=== PATIENT | female | born 1990 | race Hispanic/Latino ===

== ENCOUNTER → 2023-08-27 | Emergency (ER) | payer SELFPAY ==
--- OUTSIDE RECORDS SUMMARY | 2023-08-27 13:36 | XMS REPORT | Continuity of Care Document ---
Author Name Unknown Address [address] 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 Name Role Phone Christophe Waterman Primary Care Physician [phone] Sudeep Pa Attending Clinician Unavaila bigg Goodman Attending Clinician Unavailable ERNA MELENDEZ Attending Clinician Unavailable Nicholas Paul Attending Clinician Unavailab Carolina Hargrove MA Attending Clinician Unavailabl MARSHA Patterson Attending Clinician Unavail able Yoni Morrow Attending Clinician Unavailblessing e Doctor Unassigned, [place] Attending Clinician U navailable CHRISTOPHE SONG Attending Clinician Unavailab [facility] Attending Clinician Unavailable MADHU SHEPARD Attending Clinician Unavailable Siomara Ocampo Attending Clinician UnavailMadhu Echols MD Attending Clinician [phone] Christophe Waterman Attending Clinician [phone] Francesca Saunders Attending Clinician 1, [facility] Room Attending Clinician UnavailPamela Chen MD Attending Clinician [phone] PAMELA SIBLEY Attending Clinician Unavailable Marsha Mack Attending Clinician + Faculty, [facility] Attending Clinician Easton Hancock MD Attending Clinician [phone] EASTON MANZO Attending Clinician Unavailabl e [facility], [facility] Attending Clinician Unavailable ALEXUS LOZA Attending Clinician Unavailable ALEXUS LOZA Attending Clinician Unavailable Risk, Zva-Bpxht-Oq/High Attending Clinician Unav ailTISH Cordova Attending Clinician Unavailable Trimester, [facility] Attending Clinician Unavailable Tish Jimenez MD Attending Clinician [phone] YONI POP Attending Clinician Unavailable CAITLIN HUTCHINS Attending Clinician Unavailable Caitlin Hutchins MD Attending Clinician [phone], [facility] Attending Clinician Unavailable Jeni Aguilar Attending Clinician [phone] HARSHIL ANAYA Attending Clinician Unavailable Al_M Admitting Clinician Unavailable Sudeep Pa Admitting Clinician Unavaila ble Payers Payer Name Policy Type Policy Number Effective Date Expirati on Date Source [employer] [place] [facility] [id number] 2019 00:00:00 [facility] (MEDICAID HMO) [id number] 2021 00:00:00 [place] [id number] 2021 00:00:00 2021 00:00:00 MEDICAID PENDING PENDING 2021 00:00:00 Problems Condition Name Condition Details Condition Category Status Onset Date Resolution Date Last Treatment Date Treating Clinician Comments Source Pre-eclamp mckenzie Pre-eclamp mckenzie Problem Active 3-07 00:00: 00 [facility] Anemia of Anemia of Problem Active 2-08 00:00: 00 [facility] Uterine leiomyoma Uterine Leiomyoma Problem Active 2021-07 0- 00:00: 00 [facility] Placenta previa without hemorrhage Placenta Previa without Hemorrhage Problem Active 2021-07 0-25 00:00: 00 [facility] Uterine scar from previous surgery in , childbirth and the puerperium with problem Uterine Scar from Previous Surgery in , Childbirth and the Puerperium with Problem Problem Active 2021-07 025 00:00: 00 [facility] History of gestationa l diabetes mellitus History of Gestationa l Diabetes Mellitus Problem Active 2021-07 0-25 00:00: 00 [facility] High risk due to history of labor High Risk Due to History of Labor Problem Active 2021-07 0-25 00:00: 00 [facility] Bleeding in early Bleeding in early Disease Active 6-07 00:00: 00 [facility] Supervisio n of high risk in first trimester Supervisio n of high risk in first trimester Disease Active 17 00:00: 00 [facility] Two previous spontaneou s abortions (SAB) affecting care of mother, antepartum , first trimester Two previous spontaneou s abortions (SAB) affecting care of mother, antepartum , first trimester Disease Active 17 00:00: 00 [facility] H/O section H/O section Disease Active 517 00:00: 00 [facility] Multiparit y Multiparit y Disease Active 17 00:00: 00 [facility] Personal history of pre-term labor Personal history of pre-term labor Disease Active 17 00:00: 00 [facility] Obesity in Obesity in Disease Active 17 00:00: 00 [facility] History of anxiety History of anxiety Disease Active 517 00:00: 00 [facility] Depo-Prove ra contracept mireya status Depo-Prove ra contracept mireya status Disease Active 2018-07 2- 00:00: 00 [facility] BMI 33.0-33.9, adult BMI 33.0-33.9, adult Disease Active 5-09 00:00: 00 [facility] Family history of Congenital heart disease Family History of Congenital Heart Disease Problem Active [facility] Allergies, Adverse Reactions, Alerts Allergy Name Allergy Type Status Severity Reaction(s) Onset Date Inactive Date Treating Clinician Comments Source LATEX DRUG INGREDI Active Rash 11-12 00:00: 00 [facility] Latex Propensi ty to adverse reaction s Active Rash 11-12 00:00: 00 [facility] Latex Allergy to substanc e Active Rash 11-12 00:00: 00 [facility] LATEX, NATURAL RUBBER Allergy to substanc e Active Itching [facility] Social History Social Habit Start Date Stop Date Quantity Comments Source ASSERTION 2022-01-27 00:00:00 [facility] Alcohol Frequency [facility] History SDOH Alcohol Std Drinks [facility] History SDOH Alcohol Binge [facility] Exposure to SARS-CoV-2 (event) 2022-03-24 00:00:00 2022-04-03 15:19:00 Not sure [facility] History of Social function 2021-11-20 00:00:00 2021-11-20 00:00:00 [facility] Alcohol intake 2021-02-20 00:00:00 2021-02-20 00:00:00 Ex-drinker (finding) [facility] Tobacco use and exposure 2018-11-12 00:00:00 2018-11-12 00:00:00 Smokeless tobacco non-user [facility] Alcohol Comment 2018-11-12 00:00:00 2018-11-12 00:00:00 rare [facility] Sex Assigned At 1990 00:00:00 1990 00:00:00 [facility] Smoking Status Start Date Stop Date Source Never Smoker [facility] Medications Ordered Medication Name Filled Medication Name Start Date Stop Date Current Medication? Ordering Clinician Indication Dosage Frequency Signature (SIG) Comments Components Source proMETHazin e 25 mg tablet 913 00:00: 00 Yes [id number] 25mg Take 1 tablet by mouth every 6 (six) hours as needed for Nausea and Vomiting (N/V). [facility] proMETHazin e 25 mg tablet 2-0 9-13 00:00: 00 Yes [id number] 25mg Take 1 tablet by mouth every 6 (six) hours as needed for Nausea and Vomiting (N/V). [facility] proMETHazin e 25 mg tablet 2-0 9-13 00:00: 00 Yes [id number] 25mg Take 1 tablet by mouth every 6 (six) hours as needed for Nausea and Vomiting (N/V). [facility] proMETHazin e 25 mg tablet 2-0 9-13 00:00: 00 Yes [id number] 25mg Take 1 tablet by mouth every 6 (six) hours as needed for Nausea and Vomiting (N/V). [facility] proMETHazin e 25 mg tablet 2021-0 9-13 00:00: 00 Yes [id number] 25mg Take 1 tablet by mouth every 6 (six) hours as needed for Nausea and Vomiting (N/V). [facility] proMETHazin e 25 mg tablet 2-0 9-13 00:00: 00 Yes [id number] 25mg Take 1 tablet by mouth every 6 (six) hours as needed for Nausea and Vomiting (N/V). [facility] proMETHazin e 25 mg tablet 2-0 9-13 00:00: 00 Yes [id number] 25mg Take 1 tablet by mouth every 6 (six) hours as needed for Nausea and Vomiting (N/V). [facility] proMETHazin e 25 mg tablet 2-0 9-13 00:00: 00 Yes [id number] 25mg Take 1 tablet by mouth every 6 (six) hours as needed for Nausea and Vomiting (N/V). [facility] proMETHazin e 25 mg tablet 2-0 9-13 00:00: 00 Yes [id number] 25mg Take 1 tablet by mouth every 6 (six) hours as needed for Nausea and Vomiting (N/V). [facility] proMETHazin e 25 mg tablet 2-0 9-13 00:00: 00 Yes [id number] 25mg Take 1 tablet by mouth every 6 (six) hours as needed for Nausea and Vomiting (N/V). [facility] proMETHazin e 25 mg tablet 03-19 00:00: 00 Yes [id number] 25mg Take 1 tablet by mouth every 6 (six) hours as needed for Nausea and Vomiting (N/V). [facility] proMETHazin e 25 mg tablet 03-19 00:00: 00 Yes [id number] 25mg Take 1 tablet by mouth every 6 (six) hours as needed for Nausea and Vomiting (N/V). [facility] proMETHazin e 25 mg tablet 03-19 00:00: 00 Yes [id number] 25mg Take 1 tablet by mouth every 6 (six) hours as needed for Nausea and Vomiting (N/V). [facility] proMETHazin e 25 mg tablet 03-19 00:00: 00 Yes [id number] 25mg Take 1 tablet by mouth every 6 (six) hours as needed for Nausea and Vomiting (N/V). [facility] hydroxyprog esterone,PF , (ANDREW, PF,) 275 mg/1.1 mL injection 03-13 00:00: 00 Yes [id number] 275mg inject 1.1 mL under the skin weekly. [facility] hydroxyprog esterone,PF , (ANDREW, PF,) 275 mg/1.1 mL injection 03-13 00:00: 00 Yes [id number] 275mg inject 1.1 mL under the skin weekly. [facility] hydroxyprog esterone,PF , (ANDREW, PF,) 275 mg/1.1 mL injection 03-13 00:00: 00 Yes [id number] 275mg inject 1.1 mL under the skin weekly. [facility] hydroxyprog esterone,PF , (ANDREW, PF,) 275 mg/1.1 mL injection 03-13 00:00: 00 Yes [id number] 275mg inject 1.1 mL under the skin weekly. [facility] hydroxyprog esterone,PF , (ANDREW, PF,) 275 mg/1.1 mL injection 03-13 00:00: 00 Yes [id number] 275mg inject 1.1 mL under the skin weekly. [facility] hydroxyprog esterone,PF , (ANDREW, PF,) 275 mg/1.1 mL injection 03-13 00:00: 00 Yes [id number] 275mg inject 1.1 mL under the skin weekly. [facility] hydroxyprog esterone,PF , (ANDREW, PF,) 275 mg/1.1 mL injection 03-13 00:00: 00 Yes [id number] 275mg inject 1.1 mL under the skin weekly. [facility] hydroxyprog esterone,PF , (ANDREW, PF,) 275 mg/1.1 mL injection 03-13 00:00: 00 Yes [id number] 275mg inject 1.1 mL under the skin weekly. [facility] hydroxyprog esterone,PF , (ANDREW, PF,) 275 mg/1.1 mL injection 03-13 00:00: 00 Yes [id number] 275mg inject 1.1 mL under the skin weekly. [facility] hydroxyprog esterone,PF , (ANDREW, PF,) 275 mg/1.1 mL injection 03-13 00:00: 00 Yes [id number] 275mg inject 1.1 mL under the skin weekly. [facility] hydroxyprog esterone,PF , (ANDREW, PF,) 275 mg/1.1 mL injection 03-13 00:00: 00 Yes [id number] 275mg inject 1.1 mL under the skin weekly. [facility] hydroxyprog esterone,PF , (ANDREW, PF,) 275 mg/1.1 mL injection 03-13 00:00: 00 Yes [id number] 275mg inject 1.1 mL under the skin weekly. [facility] hydroxyprog esterone,PF , (ANDREW, PF,) 275 mg/1.1 mL injection 03-13 00:00: 00 Yes [id number] 275mg inject 1.1 mL under the skin weekly. [facility] hydroxyprog esterone,PF , (ANDREW, PF,) 275 mg/1.1 mL injection 03-13 00:00: 00 Yes [id number] 275mg inject 1.1 mL under the skin weekly. [facility] hydroxyprog esterone,PF , (ANDREW, PF,) 275 mg/1.1 mL injection 03-13 00:00: 00 Yes [id number] 275mg inject 1.1 mL under the skin weekly. [facility] proMETHazin e 25 mg tablet 11-22 00:00: 00 Yes [id number] 25mg Take 1 tablet by mouth every 4 (four) hours as needed for Nausea and Vomiting (N/V). [facility] proMETHazin e 25 mg tablet 11-22 00:00: 00 Yes [id number] 25mg Take 1 tablet by mouth every 4 (four) hours as needed for Nausea and Vomiting (N/V). [facility] proMETHazin e 25 mg tablet 11-22 00:00: 00 Yes [id number] 25mg Take 1 tablet by mouth every 4 (four) hours as needed for Nausea and Vomiting (N/V). [facility] proMETHazin e 25 mg tablet 11-22 00:00: 00 Yes [id number] 25mg Take 1 tablet by mouth every 4 (four) hours as needed for Nausea and Vomiting (N/V). [facility] proMETHazin e 25 mg tablet 11-22 00:00: 00 Yes [id number] 25mg Take 1 tablet by mouth every 4 (four) hours as needed for Nausea and Vomiting (N/V). [facility] proMETHazin e 25 mg tablet 0 11-22 00:00: 00 Yes [id number] 25mg Take 1 tablet by mouth every 4 (four) hours as needed for Nausea and Vomiting (N/V). [facility] proMETHazin e 25 mg tablet 0 11-22 00:00: 00 Yes [id number] 25mg Take 1 tablet by mouth every 4 (four) hours as needed for Nausea and Vomiting (N/V). [facility] proMETHazin e 25 mg tablet 0 11-22 00:00: 00 Yes [id number] 25mg Take 1 tablet by mouth every 4 (four) hours as needed for Nausea and Vomiting (N/V). [facility] proMETHazin e 25 mg tablet 2021-0 11-22 00:00: 00 Yes [id number] 25mg Take 1 tablet by mouth every 4 (four) hours as needed for Nausea and Vomiting (N/V). [facility] proMETHazin e 25 mg tablet 2021-0 11-22 00:00: 00 Yes [id number] 25mg Take 1 tablet by mouth every 4 (four) hours as needed for Nausea and Vomiting (N/V). [facility] proMETHazin e 25 mg tablet 2021-0 11-22 00:00: 00 Yes [id number] 25mg Take 1 tablet by mouth every 4 (four) hours as needed for Nausea and Vomiting (N/V). [facility] proMETHazin e 25 mg tablet 2021-0 11-22 00:00: 00 Yes [id number] 25mg Take 1 tablet by mouth every 4 (four) hours as needed for Nausea and Vomiting (N/V). [facility] proMETHazin e 25 mg tablet 2021-0 11-22 00:00: 00 Yes [id number] 25mg Take 1 tablet by mouth every 4 (four) hours as needed for Nausea and Vomiting (N/V). [facility] proMETHazin e 25 mg tablet 2021-0 11-22 00:00: 00 Yes [id number] 25mg Take 1 tablet by mouth every 4 (four) hours as needed for Nausea and Vomiting (N/V). [facility] proMETHazin e 25 mg tablet 2021-0 -19 00:00: 00 Yes [id number] 25mg Take 1 tablet by mouth every 4 (four) hours as needed for Nausea and Vomiting (N/V). [facility] proMETHazin e 25 mg tablet 2-0 5-19 00:00: 00 Yes [id number] 25mg Take 1 tablet by mouth every 4 (four) hours as needed for Nausea and Vomiting (N/V). [facility] proMETHazin e 25 mg tablet 2-0 5-19 00:00: 00 Yes [id number] 25mg Take 1 tablet by mouth every 4 (four) hours as needed for Nausea and Vomiting (N/V). [facility] proMETHazin e 25 mg tablet 11-22 00:00: 00 Yes [id number] 25mg Take 1 tablet by mouth every 4 (four) hours as needed for Nausea and Vomiting (N/V). [facility] vit 33-iron-fol ic-dha (SELECT-OB + DHA) 29 mg iron-1 mg -250 mg combo pack 0 11-20 00:00: 00 Yes [id number] 1{packe t} Take 1 Packet by mouth daily. [facility] vit 33-iron-fol ic-dha (SELECT-OB + DHA) 29 mg iron-1 mg -250 mg combo pack 2021-0 11-20 00:00: 00 Yes [id number] 1{packe t} Take 1 Packet by mouth daily. [facility] vit 33-iron-fol ic-dha (SELECT-OB + DHA) 29 mg iron-1 mg -250 mg combo pack 2021-0 11-20 00:00: 00 Yes [id number] 1{packe t} Take 1 Packet by mouth daily. [facility] vit 33-iron-fol ic-dha (SELECT-OB + DHA) 29 mg iron-1 mg -250 mg combo pack 2021-0 11-20 00:00: 00 Yes [id number] 1{packe t} Take 1 Packet by mouth daily. [facility] vit 33-iron-fol ic-dha (SELECT-OB + DHA) 29 mg iron-1 mg -250 mg combo pack 2021-0 11-20 00:00: 00 Yes [id number] 1{packe t} Take 1 Packet by mouth daily. [facility] vit 33-iron-fol ic-dha (SELECT-OB + DHA) 29 mg iron-1 mg -250 mg combo pack 2021-0 17 00:00: 00 Yes [id number] 1{packe t} Take 1 Packet by mouth daily. [facility] vit 33-iron-fol ic-dha (SELECT-OB + DHA) 29 mg iron-1 mg -250 mg combo pack 2021-0 17 00:00: 00 Yes [id number] 1{packe t} Take 1 Packet by mouth daily. [facility] vit 33-iron-fol ic-dha (SELECT-OB + DHA) 29 mg iron-1 mg -250 mg combo pack 2021-0 17 00:00: 00 Yes [id number] 1{packe t} Take 1 Packet by mouth daily. [facility] vit 33-iron-fol ic-dha (SELECT-OB + DHA) 29 mg iron-1 mg -250 mg combo pack 2021-0 17 00:00: 00 Yes [id number] 1{packe t} Take 1 Packet by mouth daily. [facility] vit 33-iron-fol ic-dha (SELECT-OB + DHA) 29 mg iron-1 mg -250 mg combo pack 2021-0 17 00:00: 00 Yes [id number] 1{packe t} Take 1 Packet by mouth daily. [facility] vit 33-iron-fol ic-dha (SELECT-OB + DHA) 29 mg iron-1 mg -250 mg combo pack 2021-0 17 00:00: 00 Yes [id number] 1{packe t} Take 1 Packet by mouth daily. [facility] vit 33-iron-fol ic-dha (SELECT-OB + DHA) 29 mg iron-1 mg -250 mg combo pack 2021-0 17 00:00: 00 Yes [id number] 1{packe t} Take 1 Packet by mouth daily. [facility] vit 33-iron-fol ic-dha (SELECT-OB + DHA) 29 mg iron-1 mg -250 mg combo pack 2021-0 17 00:00: 00 Yes [id number] 1{packe t} Take 1 Packet by mouth daily. [facility] vit 33-iron-fol ic-dha (SELECT-OB + DHA) 29 mg iron-1 mg -250 mg combo pack 2021-0 -17 00:00: 00 Yes [id number] 1{packe t} Take 1 Packet by mouth daily. [facility] vit 33-iron-fol ic-dha (SELECT-OB + DHA) 29 mg iron-1 mg -250 mg combo pack 11-20 00:00: 00 Yes [id number] 1{packe t} Take 1 Packet by mouth daily. [facility] vit 33-iron-fol ic-dha (SELECT-OB + DHA) 29 mg iron-1 mg -250 mg combo pack 11-20 00:00: 00 Yes [id number] 1{packe t} Take 1 Packet by mouth daily. [facility] vit 33-iron-fol ic-dha (SELECT-OB + DHA) 29 mg iron-1 mg -250 mg combo pack 11-20 00:00: 00 Yes [id number] 1{packe t} Take 1 Packet by mouth daily. [facility] vit 33-iron-fol ic-dha (SELECT-OB + DHA) 29 mg iron-1 mg -250 mg combo pack 11-20 00:00: 00 Yes [id number] 1{packe t} Take 1 Packet by mouth daily. [facility] vit w/iron fumarate and FA ( VITAMIN WITH MINERALS) tablet 10-26 00:00: 00 Yes [id number] 1{tbl} Take 1 tablet by mouth daily. [facility] vit w/iron fumarate and FA ( VITAMIN WITH MINERALS) tablet 10-26 00:00: 00 Yes [id number] 1{tbl} Take 1 tablet by mouth daily. [facility] vit w/iron fumarate and FA ( VITAMIN WITH MINERALS) tablet 2021-0 10-26 00:00: 00 Yes [id number] 1{tbl} Take 1 tablet by mouth daily. [facility] vit w/iron fumarate and FA ( VITAMIN WITH MINERALS) tablet 10-26 00:00: 00 Yes [id number] 1{tbl} Take 1 tablet by mouth daily. [facility] vit w/iron fumarate and FA ( VITAMIN WITH MINERALS) tablet 2021-10-26 00:00: 00 Yes [id number] 1{tbl} Take 1 tablet by mouth daily. [facility] vit w/iron fumarate and FA ( VITAMIN WITH MINERALS) tablet 10-26 00:00: 00 Yes [id number] 1{tbl} Take 1 tablet by mouth daily. [facility] vit w/iron fumarate and FA ( VITAMIN WITH MINERALS) tablet 10-26 00:00: 00 Yes [id number] 1{tbl} Take 1 tablet by mouth daily. [facility] vit w/iron fumarate and FA ( VITAMIN WITH MINERALS) tablet 0 10-26 00:00: 00 Yes [id number] 1{tbl} Take 1 tablet by mouth daily. [facility] vit w/iron fumarate and FA ( VITAMIN WITH MINERALS) tablet 10-26 00:00: 00 Yes [id number] 1{tbl} Take 1 tablet by mouth daily. [facility] vit w/iron fumarate and FA ( VITAMIN WITH MINERALS) tablet 10-26 00:00: 00 Yes [id number] 1{tbl} Take 1 tablet by mouth daily. [facility] vit w/iron fumarate and FA ( VITAMIN WITH MINERALS) tablet 10-26 00:00: 00 Yes [id number] 1{tbl} Take 1 tablet by mouth daily. [facility] vit w/iron fumarate and FA ( VITAMIN WITH MINERALS) tablet 10-26 00:00: 00 Yes [id number] 1{tbl} Take 1 tablet by mouth daily. [facility] vit w/iron fumarate and FA ( VITAMIN WITH MINERALS) tablet 0 10-26 00:00: 00 Yes [id number] 1{tbl} Take 1 tablet by mouth daily. [facility] vit w/iron fumarate and FA ( VITAMIN WITH MINERALS) tablet 10-26 00:00: 00 Yes [id number] 1{tbl} Take 1 tablet by mouth daily. [facility] vit w/iron fumarate and FA ( VITAMIN WITH MINERALS) tablet 10-26 00:00: 00 Yes [id number] 1{tbl} Take 1 tablet by mouth daily. [facility] vit w/iron fumarate and FA ( VITAMIN WITH MINERALS) tablet 10-26 00:00: 00 Yes [id number] 1{tbl} Take 1 tablet by mouth daily. [facility] vit w/iron fumarate and FA ( VITAMIN WITH MINERALS) tablet 10-26 00:00: 00 Yes [id number] 1{tbl} Take 1 tablet by mouth daily. [facility] vit w/iron fumarate and FA ( VITAMIN WITH MINERALS) tablet 10-26 00:00: 00 Yes [id number] 1{tbl} Take 1 tablet by mouth daily. [facility] ibuprofen 800 mg tablet 17 00:00: 00 Yes [id number] 800mg Take 1 tablet by mouth every 8 (eight) hours as needed for Pain (scale 4-6). [facility] ibuprofen 800 mg tablet 0 02-20 00:00: 00 Yes [id number] 800mg Take 1 tablet by mouth every 8 (eight) hours as needed for Pain (scale 4-6). [facility] ibuprofen 800 mg tablet 02-20 00:00: 00 Yes [id number] 800mg Take 1 tablet by mouth every 8 (eight) hours as needed for Pain (scale 4-6). [facility] ibuprofen 800 mg tablet 0 17 00:00: 00 Yes [id number] 800mg Take 1 tablet by mouth every 8 (eight) hours as needed for Pain (scale 4-6). [facility] ibuprofen 800 mg tablet 2020-0 817 00:00: 00 Yes [id number] 800mg Take 1 tablet by mouth every 8 (eight) hours as needed for Pain (scale 4-6). [facility] ibuprofen 800 mg tablet 2020-0 817 00:00: 00 Yes [id number] 800mg Take 1 tablet by mouth every 8 (eight) hours as needed for Pain (scale 4-6). [facility] ibuprofen 800 mg tablet 2021-0 8-17 00:00: 00 Yes [id number] 800mg Take 1 tablet by mouth every 8 (eight) hours as needed for Pain (scale 4-6). [facility] 2020-0 8-17 00:00: 00 Yes [id number] 800mg Take 1 tablet by mouth every 8 (eight) hours as needed for Pain (scale 4-6). [facility] mg tablet 2020-0 8-17 00:00: 00 Yes [id number] 800mg Take 1 tablet by mouth every 8 (eight) hours as needed for Pain (scale 4-6). [facility] mg tablet 1-0 8-17 00:00: 00 Yes [id number] 800mg Take 1 tablet by mouth every 8 (eight) hours as needed for Pain (scale 4-6). [facility] mg tablet 2020-0 8-17 00:00: 00 Yes [id number] 800mg Take 1 tablet by mouth every 8 (eight) hours as needed for Pain (scale 4-6). [facility] ibuprofen 800 mg tablet 2020-0 817 00:00: 00 Yes [id number] 800mg Take 1 tablet by mouth every 8 (eight) hours as needed for Pain (scale 4-6). [facility] ibuprofen 800 mg tablet 2020-0 8-17 00:00: 00 Yes [id number] 800mg Take 1 tablet by mouth every 8 (eight) hours as needed for Pain (scale 4-6). [facility] mg tablet 2020-0 8-17 00:00: 00 Yes [id number] 800mg Take 1 tablet by mouth every 8 (eight) hours as needed for Pain (scale 4-6). [facility] ibuprofen 800 mg tablet 1-0 8-17 00:00: 00 Yes [id number] 800mg Take 1 tablet by mouth every 8 (eight) hours as needed for Pain (scale 4-6). [facility] ibuprofen 800 mg tablet 1-0 8-17 00:00: 00 Yes [id number] 800mg Take 1 tablet by mouth every 8 (eight) hours as needed for Pain (scale 4-6). [facility] ibuprofen 800 mg tablet 02-20 00:00: 00 Yes [id number] 800mg Take 1 tablet by mouth every 8 (eight) hours as needed for Pain (scale 4-6). [facility] ibuprofen 800 mg tablet 02-20 00:00: 00 Yes [id number] 800mg Take 1 tablet by mouth every 8 (eight) hours as needed for Pain (scale 4-6). [facility] ibuprofen 800 mg tablet 02-20 00:00: 00 Yes [id number] 800mg Take 1 tablet by mouth every 8 (eight) hours as needed for Pain (scale 4-6). [facility] ferrous gluconate 240 mg (27 mg iron) tablet Take 1 tablet every day by oral route. ferrous gluconate 240 mg (27 mg iron) tablet Take 1 tablet every day by oral route. No 1 Q1D ferrous gluconate 240 mg (27 mg iron) tablet Take 1 tablet every day by oral route. [facility] omeprazole 40 mg capsule,del ayed release Take 1 capsule every day by oral route. omeprazole 40 mg capsule,del ayed release Take 1 capsule every day by oral route. No 1capsul e(s) Q1D omeprazole 40 mg capsule,de layed release Take 1 capsule every day by oral route. [facility] progesteron e micronized 200 mg capsule progesteron e micronized 200 mg capsule No progestero ne micronized 200 mg capsule [facility] Vitafol Ultra 29 mg iron-1 mg-200 mg capsule Take 1 capsule every day by oral route. Vitafol Ultra 29 mg iron-1 mg-200 mg capsule Take 1 capsule every day by oral route. No 1capsul e(s) Q1D Vitafol Ultra 29 mg iron-1 mg-200 mg capsule Take 1 capsule every day by oral route. [facility] ferrous gluconate 324 mg (37.5 mg iron) tablet Take 1 tablet every day by oral route. ferrous gluconate 324 mg (37.5 mg iron) tablet Take 1 tablet every day by oral route. No 1 Q1D ferrous gluconate 324 mg (37.5 mg iron) tablet Take 1 tablet every day by oral route. [facility] omeprazole 40 mg capsule,del ayed release Take 1 capsule every day by oral route. omeprazole 40 mg capsule,del ayed release Take 1 capsule every day by oral route. No 1capsul e(s) Q1D omeprazole 40 mg capsule,de layed release Take 1 capsule every day by oral route. [facility] progesteron e micronized 200 mg capsule Take 1 capsule every day by oral route for 12 days. progesteron e micronized 200 mg capsule Take 1 capsule every day by oral route for 12 days. No 1capsul e(s) Q1D progestero ne micronized 200 mg capsule Take 1 capsule every day by oral route for 12 days. [facility] Vitafol Ultra 29 mg iron-1 mg-200 mg capsule Take 1 capsule every day by oral route. Vitafol Ultra 29 mg iron-1 mg-200 mg capsule Take 1 capsule every day by oral route. No 1capsul e(s) Q1D Vitafol Ultra 29 mg iron-1 mg-200 mg capsule Take 1 capsule every day by oral route. [facility] ferrous gluconate 324 mg (37.5 mg iron) tablet Take 1 tablet every day by oral route. ferrous gluconate 324 mg (37.5 mg iron) tablet Take 1 tablet every day by oral route. No 1 Q1D ferrous gluconate 324 mg (37.5 mg iron) tablet Take 1 tablet every day by oral route. [facility] omeprazole 40 mg capsule,del ayed release Take 1 capsule every day by oral route. omeprazole 40 mg capsule,del ayed release Take 1 capsule every day by oral route. No 1capsul e(s) Q1D omeprazole 40 mg capsule,de layed release Take 1 capsule every day by oral route. [facility] progesteron e micronized 200 mg capsule Take 1 capsule every day by oral route for 12 days. progesteron e micronized 200 mg capsule Take 1 capsule every day by oral route for 12 days. No 1capsul e(s) Q1D progestero ne micronized 200 mg capsule Take 1 capsule every day by oral route for 12 days. [facility] Vitafol Ultra 29 mg iron-1 mg-200 mg capsule Take 1 capsule every day by oral route. Vitafol Ultra 29 mg iron-1 mg-200 mg capsule Take 1 capsule every day by oral route. No 1capsul e(s) Q1D Vitafol Ultra 29 mg iron-1 mg-200 mg capsule Take 1 capsule every day by oral route. [facility] ferrous gluconate 324 mg (37.5 mg iron) tablet Take 1 tablet every day by oral route. ferrous gluconate 324 mg (37.5 mg iron) tablet Take 1 tablet every day by oral route. No 1 Q1D ferrous gluconate 324 mg (37.5 mg iron) tablet Take 1 tablet every day by oral route. [facility] omeprazole 40 mg capsule,del ayed release Take 1 capsule every day by oral route. omeprazole 40 mg capsule,del ayed release Take 1 capsule every day by oral route. No 1capsul e(s) Q1D omeprazole 40 mg capsule,de layed release Take 1 capsule every day by oral route. [facility] progesteron e micronized 200 mg capsule Take 1 capsule every day by oral route for 12 days. progesteron e micronized 200 mg capsule Take 1 capsule every day by oral route for 12 days. No 1capsul e(s) Q1D progestero ne micronized 200 mg capsule Take 1 capsule every day by oral route for 12 days. [facility] Vitafol Ultra 29 mg iron-1 mg-200 mg capsule Take 1 capsule every day by oral route. Vitafol Ultra 29 mg iron-1 mg-200 mg capsule Take 1 capsule every day by oral route. No 1capsul e(s) Q1D Vitafol Ultra 29 mg iron-1 mg-200 mg capsule Take 1 capsule every day by oral route. [facility] Vitafol Ultra 29 mg iron-1 mg-200 mg capsule Take 1 capsule every day by oral route. Vitafol Ultra 29 mg iron-1 mg-200 mg capsule Take 1 capsule every day by oral route. No 1capsul e(s) Q1D Vitafol Ultra 29 mg iron-1 mg-200 mg capsule Take 1 capsule every day by oral route. [facility] ferrous gluconate 324 mg (37.5 mg iron) tablet Take 1 tablet every day by oral route. ferrous gluconate 324 mg (37.5 mg iron) tablet Take 1 tablet every day by oral route. No 1 Q1D ferrous gluconate 324 mg (37.5 mg iron) tablet Take 1 tablet every day by oral route. [facility] fluconazole 150 mg tablet Take 1 tablet every 72 hours by oral route. fluconazole 150 mg tablet Take 1 tablet every 72 hours by oral route. No fluconazol e 150 mg tablet Take 1 tablet every 72 hours by oral route. [facility] metronidazo le 500 mg tablet Take 1 tablet twice a day by oral route for 7 days. metronidazo le 500 mg tablet Take 1 tablet twice a day by oral route for 7 days. No metronidaz ole 500 mg tablet Take 1 tablet twice a day by oral route for 7 days. [facility] omeprazole 40 mg capsule,del ayed release Take 1 capsule every day by oral route. omeprazole 40 mg capsule,del ayed release Take 1 capsule every day by oral route. No 1capsul e(s) Q1D omeprazole 40 mg capsule,de layed release Take 1 capsule every day by oral route. [facility] progesteron e micronized 200 mg capsule Take 1 capsule every day by oral route for 12 days. progesteron e micronized 200 mg capsule Take 1 capsule every day by oral route for 12 days. No 1capsul e(s) Q1D progestero ne micronized 200 mg capsule Take 1 capsule every day by oral route for 12 days. [facility] Vitafol Ultra 29 mg iron-1 mg-200 mg capsule Take 1 capsule every day by oral route. Vitafol Ultra 29 mg iron-1 mg-200 mg capsule Take 1 capsule every day by oral route. No 1capsul e(s) Q1D Vitafol Ultra 29 mg iron-1 mg-200 mg capsule Take 1 capsule every day by oral route. [facility] ferrous gluconate 324 mg (37.5 mg iron) tablet Take 1 tablet every day by oral route. ferrous gluconate 324 mg (37.5 mg iron) tablet Take 1 tablet every day by oral route. No 1 Q1D ferrous gluconate 324 mg (37.5 mg iron) tablet Take 1 tablet every day by oral route. [facility] fluconazole 150 mg tablet Take 1 tablet every 72 hours by oral route. fluconazole 150 mg tablet Take 1 tablet every 72 hours by oral route. No fluconazol e 150 mg tablet Take 1 tablet every 72 hours by oral route. [facility] metronidazo le 500 mg tablet Take 1 tablet twice a day by oral route for 7 days. metronidazo le 500 mg tablet Take 1 tablet twice a day by oral route for 7 days. No metronidaz ole 500 mg tablet Take 1 tablet twice a day by oral route for 7 days. [facility] omeprazole 40 mg capsule,del ayed release Take 1 capsule every day by oral route. omeprazole 40 mg capsule,del ayed release Take 1 capsule every day by oral route. No 1capsul e(s) Q1D omeprazole 40 mg capsule,de layed release Take 1 capsule every day by oral route. [facility] progesteron e micronized 200 mg capsule Take 1 capsule every day by oral route for 12 days. progesteron e micronized 200 mg capsule Take 1 capsule every day by oral route for 12 days. No 1capsul e(s) Q1D progestero ne micronized 200 mg capsule Take 1 capsule every day by oral route for 12 days. [facility] Vitafol Ultra 29 mg iron-1 mg-200 mg capsule Take 1 capsule every day by oral route. Vitafol Ultra 29 mg iron-1 mg-200 mg capsule Take 1 capsule every day by oral route. No 1capsul e(s) Q1D Vitafol Ultra 29 mg iron-1 mg-200 mg capsule Take 1 capsule every day by oral route. [facility] ferrous gluconate 324 mg (37.5 mg iron) tablet Take 1 tablet every day by oral route. ferrous gluconate 324 mg (37.5 mg iron) tablet Take 1 tablet every day by oral route. No 1 Q1D ferrous gluconate 324 mg (37.5 mg iron) tablet Take 1 tablet every day by oral route. [facility] fluconazole 150 mg tablet Take 1 tablet every 72 hours by oral route. fluconazole 150 mg tablet Take 1 tablet every 72 hours by oral route. No fluconazol e 150 mg tablet Take 1 tablet every 72 hours by oral route. [facility] metronidazo le 500 mg tablet Take 1 tablet twice a day by oral route for 7 days. metronidazo le 500 mg tablet Take 1 tablet twice a day by oral route for 7 days. No metronidaz ole 500 mg tablet Take 1 tablet twice a day by oral route for 7 days. [facility] omeprazole 40 mg capsule,del ayed release Take 1 capsule every day by oral route. omeprazole 40 mg capsule,del ayed release Take 1 capsule every day by oral route. No 1capsul e(s) Q1D omeprazole 40 mg capsule,de layed release Take 1 capsule every day by oral route. [facility] progesteron e micronized 200 mg capsule Take 1 capsule every day by oral route for 12 days. progesteron e micronized 200 mg capsule Take 1 capsule every day by oral route for 12 days. No 1capsul e(s) Q1D progestero ne micronized 200 mg capsule Take 1 capsule every day by oral route for 12 days. [facility] Vitafol Ultra 29 mg iron-1 mg-200 mg capsule Take 1 capsule every day by oral route. Vitafol Ultra 29 mg iron-1 mg-200 mg capsule Take 1 capsule every day by oral route. No 1capsul e(s) Q1D Vitafol Ultra 29 mg iron-1 mg-200 mg capsule Take 1 capsule every day by oral route. [facility] ferrous gluconate 324 mg (37.5 mg iron) tablet Take 1 tablet every day by oral route. ferrous gluconate 324 mg (37.5 mg iron) tablet Take 1 tablet every day by oral route. No 1 Q1D ferrous gluconate 324 mg (37.5 mg iron) tablet Take 1 tablet every day by oral route. [facility] omeprazole 40 mg capsule,del ayed release Take 1 capsule every day by oral route. omeprazole 40 mg capsule,del ayed release Take 1 capsule every day by oral route. No 1capsul e(s) Q1D omeprazole 40 mg capsule,de layed release Take 1 capsule every day by oral route. [facility] progesteron e micronized 200 mg capsule Take 1 capsule every day by oral route for 12 days. progesteron e micronized 200 mg capsule Take 1 capsule every day by oral route for 12 days. No 1capsul e(s) Q1D progestero ne micronized 200 mg capsule Take 1 capsule every day by oral route for 12 days. [facility] Vitafol Ultra 29 mg iron-1 mg-200 mg capsule Take 1 capsule every day by oral route. Vitafol Ultra 29 mg iron-1 mg-200 mg capsule Take 1 capsule every day by oral route. No 1capsul e(s) Q1D Vitafol Ultra 29 mg iron-1 mg-200 mg capsule Take 1 capsule every day by oral route. [facility] ferrous gluconate 324 mg (37.5 mg iron) tablet Take 1 tablet every day by oral route. ferrous gluconate 324 mg (37.5 mg iron) tablet Take 1 tablet every day by oral route. No 1 Q1D ferrous gluconate 324 mg (37.5 mg iron) tablet Take 1 tablet every day by oral route. [facility] phentermine 37.5 mg tablet Take 1 tablet every day by oral route for 30 days. phentermine 37.5 mg tablet Take 1 tablet every day by oral route for 30 days. No 1 Q1D phentermin e 37.5 mg tablet Take 1 tablet every day by oral route for 30 days. [facility] Vitafol Ultra 29 mg iron-1 mg-200 mg capsule Take 1 capsule every day by oral route. Vitafol Ultra 29 mg iron-1 mg-200 mg capsule Take 1 capsule every day by oral route. No 1capsul e(s) Q1D Vitafol Ultra 29 mg iron-1 mg-200 mg capsule Take 1 capsule every day by oral route. [facility] ferrous gluconate 240 mg (27 mg iron) tablet Take 1 tablet every day by oral route. ferrous gluconate 240 mg (27 mg iron) tablet Take 1 tablet every day by oral route. No 1 Q1D ferrous gluconate 240 mg (27 mg iron) tablet Take 1 tablet every day by oral route. [facility] omeprazole 40 mg capsule,del ayed release Take 1 capsule every day by oral route. omeprazole 40 mg capsule,del ayed release Take 1 capsule every day by oral route. No 1capsul e(s) Q1D omeprazole 40 mg capsule,de layed release Take 1 capsule every day by oral route. [facility] progesteron e micronized 200 mg capsule progesteron e micronized 200 mg capsule No progestero ne micronized 200 mg capsule [facility] Vitafol Ultra 29 mg iron-1 mg-200 mg capsule Take 1 capsule every day by oral route. Vitafol Ultra 29 mg iron-1 mg-200 mg capsule Take 1 capsule every day by oral route. No 1capsul e(s) Q1D Vitafol Ultra 29 mg iron-1 mg-200 mg capsule Take 1 capsule every day by oral route. [facility] ferrous gluconate 240 mg (27 mg iron) tablet Take 1 tablet every day by oral route. ferrous gluconate 240 mg (27 mg iron) tablet Take 1 tablet every day by oral route. No 1 Q1D ferrous gluconate 240 mg (27 mg iron) tablet Take 1 tablet every day by oral route. [facility] omeprazole 40 mg capsule,del ayed release Take 1 capsule every day by oral route. omeprazole 40 mg capsule,del ayed release Take 1 capsule every day by oral route. No 1capsul e(s) Q1D omeprazole 40 mg capsule,de layed release Take 1 capsule every day by oral route. [facility] progesteron e micronized 200 mg capsule progesteron e micronized 200 mg capsule No progestero ne micronized 200 mg capsule [facility] Vitafol Ultra 29 mg iron-1 mg-200 mg capsule Take 1 capsule every day by oral route. Vitafol Ultra 29 mg iron-1 mg-200 mg capsule Take 1 capsule every day by oral route. No 1capsul e(s) Q1D Vitafol Ultra 29 mg iron-1 mg-200 mg capsule Take 1 capsule every day by oral route. [facility] Immunizations Ordered Immunization Name Filled Immunization Name Date Status Comments Source Influenza Virus Vaccine Quad .5 mL IM 6+ MO 2019-05-04 00:00:00 Completed [facility] HPV9 2019-05-04 00:00:00 Completed [facility] Influenza Virus Vaccine Quad .5 mL IM 6+ MO 2019-05-04 00:00:00 Completed [facility] HPV9 2019-05-04 00:00:00 Completed [facility] Influenza Virus Vaccine Quad .5 mL IM 6+ MO 2019-05-04 00:00:00 Completed [facility] HPV9 2019-05-04 00:00:00 Completed [facility] Influenza Virus Vaccine Quad .5 mL IM 6+ MO 2019-05-04 00:00:00 Completed [facility] HPV9 2019-05-04 00:00:00 Completed [facility] Influenza Virus Vaccine Quad .5 mL IM 6+ MO 2019-05-04 00:00:00 Completed [facility] HPV9 2019-05-04 00:00:00 Completed [facility] Influenza Virus Vaccine Quad .5 mL IM 6+ MO 2019-05-04 00:00:00 Completed [facility] HPV9 2019-05-04 00:00:00 Completed [facility] Influenza Virus Vaccine Quad .5 mL IM 6+ MO 2019-05-04 00:00:00 Completed [facility] HPV9 2019-05-04 00:00:00 Completed [facility] Influenza Virus Vaccine Quad .5 mL IM 6+ MO 2019-05-04 00:00:00 Completed [facility] HPV9 2019-05-04 00:00:00 Completed [facility] Influenza Virus Vaccine Quad .5 mL IM 6+ MO 2019-05-04 00:00:00 Completed [facility] HPV9 2019-05-04 00:00:00 Completed [facility] Influenza Virus Vaccine Quad .5 mL IM 6+ MO 2019-05-04 00:00:00 Completed [facility] HPV9 2019-05-04 00:00:00 Completed [facility] Influenza Virus Vaccine Quad .5 mL IM 6+ MO 2019-05-04 00:00:00 Completed [facility] HPV9 2019-05-04 00:00:00 Completed [facility] Influenza Virus Vaccine Quad .5 mL IM 6+ MO 2019-05-04 00:00:00 Completed [facility] HPV9 2019-05-04 00:00:00 Completed [facility] Influenza Virus Vaccine Quad .5 mL IM 6+ MO 2019-05-04 00:00:00 Completed [facility] HPV9 2019-05-04 00:00:00 Completed [facility] Influenza Virus Vaccine Quad .5 mL IM 6+ MO 2019-05-04 00:00:00 Completed [facility] HPV9 2019-05-04 00:00:00 Completed [facility] Influenza Virus Vaccine Quad .5 mL IM 6+ MO 2019-05-04 00:00:00 Completed [facility] HPV9 2019-05-04 00:00:00 Completed [facility] Influenza Virus Vaccine Quad .5 mL IM 6+ MO 2019-05-04 00:00:00 Completed [facility] HPV9 2019-05-04 00:00:00 Completed [facility] Influenza Virus Vaccine Quad .5 mL IM 6+ MO 2019-05-04 00:00:00 Completed [facility] HPV9 2019-05-04 00:00:00 Completed [facility] Influenza Virus Vaccine Quad .5 mL IM 6+ MO 2019-05-04 00:00:00 Completed [facility] HPV9 2019-05-04 00:00:00 Completed [facility] TDAP (ADACEL) VACCINE 2019-04-18 00:00:00 Completed [facility] TDAP (ADACEL) VACCINE 2019-04-18 00:00:00 Completed [facility] TDAP (ADACEL) VACCINE 2019-04-18 00:00:00 Completed [facility] TDAP (ADACEL) VACCINE 2019-04-18 00:00:00 Completed [facility] TDAP (ADACEL) VACCINE 2019-04-18 00:00:00 Completed [facility] TDAP (ADACEL) VACCINE 2019-04-18 00:00:00 Completed [facility] TDAP (ADACEL) VACCINE 2019-04-18 00:00:00 Completed [facility] TDAP (ADACEL) VACCINE 2019-04-18 00:00:00 Completed [facility] TDAP (ADACEL) VACCINE 2019-04-18 00:00:00 Completed [facility] TDAP (ADACEL) VACCINE 2019-04-18 00:00:00 Completed [facility] TDAP (ADACEL) VACCINE 2019-04-18 00:00:00 Completed [facility] TDAP (ADACEL) VACCINE 2019-04-18 00:00:00 Completed [facility] TDAP (ADACEL) VACCINE 2019-04-18 00:00:00 Completed [facility] TDAP (ADACEL) VACCINE 2019-04-18 00:00:00 Completed [facility] TDAP (ADACEL) VACCINE 2019-04-18 00:00:00 Completed [facility] TDAP (ADACEL) VACCINE 2019-04-18 00:00:00 Completed [facility] TDAP (ADACEL) VACCINE 2019-04-18 00:00:00 Completed [facility] TDAP (ADACEL) VACCINE 2019-04-18 00:00:00 Completed [facility] Influenza Virus Vaccine Quad .5 mL IM 6+ MO 2018-11-12 00:00:00 Completed [facility] Influenza Virus Vaccine Quad .5 mL IM 6+ MO 2018-11-12 00:00:00 Completed [facility] Influenza Virus Vaccine Quad .5 mL IM 6+ MO 2018-11-12 00:00:00 Completed [facility] Influenza Virus Vaccine Quad .5 mL IM 6+ MO 2018-11-12 00:00:00 Completed [facility] Influenza Virus Vaccine Quad .5 mL IM 6+ MO 2018-11-12 00:00:00 Completed [facility] Influenza Virus Vaccine Quad .5 mL IM 6+ MO 2018-11-12 00:00:00 Completed [facility] Influenza Virus Vaccine Quad .5 mL IM 6+ MO 2018-11-12 00:00:00 Completed [facility] Influenza Virus Vaccine Quad .5 mL IM 6+ MO 2018-11-12 00:00:00 Completed [facility] Influenza Virus Vaccine Quad .5 mL IM 6+ MO 2018-11-12 00:00:00 Completed [facility] Influenza Virus Vaccine Quad .5 mL IM 6+ MO 2018-11-12 00:00:00 Completed [facility] Influenza Virus Vaccine Quad .5 mL IM 6+ MO 2018-11-12 00:00:00 Completed [facility] Influenza Virus Vaccine Quad .5 mL IM 6+ MO 2018-11-12 00:00:00 Completed [facility] Influenza Virus Vaccine Quad .5 mL IM 6+ MO 2018-11-12 00:00:00 Completed [facility] Influenza Virus Vaccine Quad .5 mL IM 6+ MO 2018-11-12 00:00:00 Completed [facility] Influenza Virus Vaccine Quad .5 mL IM 6+ MO 2018-11-12 00:00:00 Completed [facility] Influenza Virus Vaccine Quad .5 mL IM 6+ MO 2018-11-12 00:00:00 Completed [facility] Influenza Virus Vaccine Quad .5 mL IM 6+ MO 2018-11-12 00:00:00 Completed [facility] Influenza Virus Vaccine Quad .5 mL IM 6+ MO 2018-11-12 00:00:00 Completed [facility] Influenza Virus Vaccine Quad .5 mL IM 6+ MO (FLUZONE/FLULAVAL/F LUARIX) Unknown Completed [facility] TDAP (ADACEL) VACCINE Unknown Completed [facility] Influenza Virus Vaccine Quad .5 mL IM 6+ MO (FLUZONE/FLULAVAL/F LUARIX) Unknown Completed [facility] HPV9 Unknown Completed [facility] Vital Signs Vital Name Observation Time Observation Value Comments S ource BP Diastolic 2022-10-28 00:00:00 86 mm[Hg] [facility] Height 2022-10-28 00:00:00 60 [in_i] [facility] BMI (Body Mass Index) 2022-10-28 00:00:00 39.5 kg/m2 [facility] BP Systolic 2022-10-28 00:00:00 139 mm[Hg] [facility] Body Weight 2022-10-28 00:00:00 202 [lb_av] [facility] BP Diastolic 2022-09-27 00:00:00 90 mm[Hg] [facility] Height 2022-09-27 00:00:00 60 [in_i] [facility] BMI (Body Mass Index) 2022-09-27 00:00:00 44.1 kg/m2 [facility] BP Systolic 2022-09-27 00:00:00 137 mm[Hg] [facility] Body Weight 2022-09-27 00:00:00 226 [lb_av] [facility] BP Diastolic 2022-09-20 00:00:00 92 mm[Hg] [facility] Height 2022-09-20 00:00:00 60 [in_i] [facility] BMI (Body Mass Index) 2022-09-20 00:00:00 43.7 kg/m2 [facility] BP Systolic 2022-09-20 00:00:00 143 mm[Hg] [facility] Body Weight 2022-09-20 00:00:00 224 [lb_av] [facility] BP Diastolic 2022-09-17 00:00:00 87 mm[Hg] [facility] Height 2022-09-17 00:00:00 60 [in_i] [facility] BMI (Body Mass Index) 2022-09-17 00:00:00 43.7 kg/m2 [facility] BP Systolic 2022-09-17 00:00:00 141 mm[Hg] [facility] Body Weight 2022-09-17 00:00:00 223.7 [lb_av] [facility] BP Diastolic 2022-09-13 00:00:00 89 mm[Hg] [facility] Height 2022-09-13 00:00:00 60 [in_i] [facility] BMI (Body Mass Index) 2022-09-13 00:00:00 43.1 kg/m2 [facility] BP Systolic 2022-09-13 00:00:00 133 mm[Hg] [facility] Body Weight 2022-09-13 00:00:00 220.6 [lb_av] [facility] BP Diastolic 2022-09-10 00:00:00 86 mm[Hg] [facility] Height 2022-09-10 00:00:00 60 [in_i] [facility] BP Systolic 2022-09-10 00:00:00 135 mm[Hg] [facility] Body Weight 2022-09-10 00:00:00 220.9 [lb_av] [facility] BP Diastolic 2022-09-06 00:00:00 86 mm[Hg] [facility] Height 2022-09-06 00:00:00 60 [in_i] [facility] BMI (Body Mass Index) 2022-09-06 00:00:00 43.9 kg/m2 [facility] BP Systolic 2022-09-06 00:00:00 144 mm[Hg] [facility] Body Weight 2022-09-06 00:00:00 225 [lb_av] [facility] BP Diastolic 2022-08-30 00:00:00 97 mm[Hg] [facility] Height 2022-08-30 00:00:00 60 [in_i] [facility] BMI (Body Mass Index) 2022-08-30 00:00:00 43.2 kg/m2 [facility] BP Systolic 2022-08-30 00:00:00 147 mm[Hg] [facility] Body Weight 2022-08-30 00:00:00 221.1 [lb_av] [facility] BP Diastolic 2022-08-14 00:00:00 83 mm[Hg] [facility] Height 2022-08-14 00:00:00 60 [in_i] [facility] BMI (Body Mass Index) 2022-08-14 00:00:00 41.8 kg/m2 [facility] BP Systolic 2022-08-14 00:00:00 135 mm[Hg] [facility] Body Weight 2022-08-14 00:00:00 213.8 [lb_av] [facility] BP Diastolic 2022-07-11 00:00:00 82 mm[Hg] [facility] Height 2022-07-11 00:00:00 60 [in_i] [facility] BMI (Body Mass Index) 2022-07-11 00:00:00 41.9 kg/m2 [facility] BP Systolic 2022-07-11 00:00:00 131 mm[Hg] [facility] Body Weight 2022-07-11 00:00:00 214.3 [lb_av] [facility] BP Diastolic 2022-06-27 00:00:00 79 mm[Hg] [facility] Height 2022-06-27 00:00:00 60 [in_i] [facility] BMI (Body Mass Index) 2022-06-27 00:00:00 40.9 kg/m2 [facility] BP Systolic 2022-06-27 00:00:00 138 mm[Hg] [facility] Body Weight 2022-06-27 00:00:00 209.3 [lb_av] [facility] BP Diastolic 2022-05-14 00:00:00 75 mm[Hg] [facility] Height 2022-05-14 00:00:00 60 [in_i] [facility] BMI (Body Mass Index) 2022-05-14 00:00:00 38.8 kg/m2 [facility] BP Systolic 2022-05-14 00:00:00 114 mm[Hg] [facility] Body Weight 2022-05-14 00:00:00 198.8 [lb_av] [facility] BP Diastolic 2022-04-30 00:00:00 71 mm[Hg] [facility] Height 2022-04-30 00:00:00 60 [in_i] [facility] BMI (Body Mass Index) 2022-04-30 00:00:00 38.5 kg/m2 [facility] BP Systolic 2022-04-30 00:00:00 124 mm[Hg] [facility] Body Weight 2022-04-30 00:00:00 197 [lb_av] [facility] Systolic blood pressure 2022-04-03 20:21:00 135 mm[Hg] [facility] Diastolic blood pressure 2022-04-03 20:21:00 78 mm[Hg] [facility] Heart rate 2022-04-03 20:20:00 87 /min [facility] Body temperature 2022-04-03 20:20:00 36.56 [facility] Respiratory rate 2022-04-03 20:20:00 18 /min [facility] Body weight 2022-04-03 20:20:[address] [facility] BMI 2022-04-03 20:20:00 34.40 kg/m2 [facility] Systolic blood pressure 2022-03-19 14:33:00 138 mm[Hg] [facility] Diastolic blood pressure 2022-03-19 14:33:00 66 mm[Hg] [facility] Heart rate 2022-03-19 14:33:00 87 /min [facility] Body temperature 2022-03-19 14:33:00 36.5 Maked[facility] Respiratory rate 2022-03-19 14:33:00 18 /min [facility] Body height 2022-03-19 14:33:[address] [facility] Body weight 2022-03-19 14:33:[address] [facility] BMI 2022-03-19 14:33:00 34.25 kg/m2 [facility] Systolic blood pressure 2022-02-19 19:17:00 134 mm[Hg] [facility] Diastolic blood pressure 2022-02-19 19:17:00 76 mm[Hg] [facility] Heart rate 2022-02-19 19:17:00 81 /min [facility] Body temperature 2022-02-19 19:17:00 36.39 [facility] Respiratory rate 2022-02-19 19:17:00 18 /min [facility] Body height 2022-02-19 19:17:[address] [facility] Body weight 2022-02-19 19:17:[address] [facility] BMI 2022-02-19 19:17:00 33.85 kg/m2 [facility] Procedures Procedure Date / Time Performed Performing Clinician Source Delivery 2022-10-01 00:00:00 [facility] US(FBP)W/0 NON STRESS TEST 2022-09-27 00:00:00 [facility] US, obstetric, limited 2022-09-20 00:00:00 [facility] US(FBP)W/0 NON STRESS TEST 2022-09-20 00:00:00 [facility] US(FBP)W/0 NON STRESS TEST 2022-09-17 00:00:00 [facility] non-stress test 2022-09-17 00:00:00 [facility] US(FBP)W/0 NON STRESS TEST 2022-09-11 00:00:00 [facility] US(FBP)W/0 NON STRESS TEST 2022-09-10 00:00:00 [facility] US(FBP)W/0 NON STRESS TEST 2022-09-06 00:00:00 [facility] US, obstetric, limited 2022-08-30 00:00:00 [facility] ultrasound 2022-08-30 00:00:00 [facility] ULTRASOUND REPEAT 2022-08-14 00:00:00 [facility] non-stress test 2022-07-11 00:00:00 [facility] US, obstetric, limited 2022-06-27 00:00:00 [facility] US, obstetric, limited 2022-05-14 00:00:00 [facility] EXTERNAL PROVIDER RECORDS 2022-05-04 05:01:00 Doctor Unassigned, [place] [facility] US, obstetric, limited 2022-04-30 00:00:00 [facility] EXTERNAL PROVIDER RECORDS 2022-04-24 05:01:00 Doctor Unassigned, [place] [facility] AUTHORIZATION FOR RELEASE OF PHI 2022-04-10 05:01:00 Doctor Unassigned, [place] [facility] FIRST TRIMESTER ULTRASOUND 2022-04-08 13:38:00 Christophe Song [facility] POCT URINALYSIS 2022-04-03 20:21:00 Christophe Song [facility] POCT URINALYSIS 2022-03-19 14:36:00 Christophe Song [facility] POCT TEST 2022-02-19 19:19:00 Royce Song [facility] POCT URINALYSIS W/O SPECIFIC GRAVITY 2022-02-19 19:18:00 Christophe Song [facility] Plan of Care Planned Activity Planned Date Details Comments Source Diagnostic Test Pending 2022-09-27 00:00:00 urinalysis, dipstick [code = urinalysis, dipstick] [facility] Instructions [facility] Encounters Start Date/Time End Date/Time Encounter Type Admission Type Attending [facility] Facility Care Department Encounter ID Source 2022-09-27 08:30:00 Inpatient Sudeep Khan [facility] [id number] [facility] 2022-01-18 09:17:16 Outpatient [facility] [id number] [facility] 2021-05-07 12:35:40 Emergency [facility] [id number] [facility] 2022-12-05 00:00:00 2022-12-05 00:00:00 Outpatient White_M MMG MMG [id number] [facility] 2022-10-28 00:00:00 2022-10-28 00:00:00 Sudeep Pa MD: [address] [place] [address], [facility] [address], [place] [address] , Ph. [phone] MM[facility] [id number] [facility] 2022-10-13 00:00:00 2022-10-13 00:00:00 Outpatient White_M MMG MMG [id number] [facility] 2022-10-13 00:00:00 2022-10-13 00:00:00 Outpatient White_M MMG MMG [id number] [facility] 2022-10-01 05:04:00 2022-10-02 12:20:00 Inpatient Sudeep Khan [facility] [id number] [facility] 2022-09-27 00:00:00 2022-09-27 00:00:00 Sudeep Pa MD: [address] [place] [address], [facility] [address], [place] [address] , Ph. [phone] [facility] [id number] [facility] 2022-09-26 00:00:00 2022-09-26 00:00:00 Outpatient White_M MMG MMG [id number] [facility] 2022-09-25 00:00:00 2022-09-25 00:00:00 Outpatient White_M MMG MMG [id number] [facility] 2022-09-23 11:49:00 2022-09-23 11:49:00 Outpatient ERNA SMITH [facility] [id number] [facility] 2022-09-23 00:00:00 2022-09-23 00:00:00 Outpatient White_M MMG MMG [id number] [facility] 2022-09-20 00:00:00 2022-09-20 16:50:00 Inpatient ERNA SMITH [facility] [id number] [facility] 2022-09-20 00:00:00 2022-09-20 00:00:00 Erna MelendezREXP-BC: [address] [facility], [facility] [address], [place] [address] , Ph. [phone] [facility] - [facility]YN [id number] [facility] 2022-09-19 00:00:00 2022-09-19 00:00:00 Outpatient White_M MMG MMG [id number] [facility] 2022-09-19 00:00:00 2022-09-19 00:00:00 Outpatient White_M MMG MMG [id number] [facility] 2022-09-18 00:00:00 2022-09-18 00:00:00 Outpatient White_M MMG MMG [id number] [facility] 2022-09-17 00:00:00 2022-09-17 00:00:00 Erna MelendezREXP-BC: [address] [facility], [address], [place] [address] , Ph. [phone] MM[facility] - [facility] [id number] [facility] 2022-09-16 00:00:00 2022-09-16 00:00:00 Outpatient White_M MMG MMG [id number] [facility] 2022-09-16 00:00:00 2022-09-16 00:00:00 Outpatient White_M MMG MMG [id number] [facility] 2022-09-14 16:12:00 2022-09-14 16:12:00 Outpatient EJ SewellPaulNicholas [facility] [id number] [facility] 2022-09-13 12:57:00 2022-09-13 12:57:00 Outpatient Sudeep Khan [facility] [id number] [facility] 2022-09-13 00:00:00 2022-09-13 00:00:00 Sudeep Pa MD: [address] [place] [address], [address], [place] [address] , Ph. [phone] MMG [facility] [id number] [facility] 2022-09-12 00:00:00 2022-09-12 00:00:00 Outpatient White_M MMG MMG [id number] [facility] 2022-09-12 00:00:00 2022-09-12 00:00:00 Outpatient White_M MMG MMG [id number] [facility] 2022-09-11 08:16:00 2022-09-11 08:16:00 Outpatient Sudeep Khan [facility] [id number] [facility] 2022-09-10 16:43:00 2022-09-10 16:43:00 Outpatient Sudeep Khan [facility] [id number] [facility] 2022-09-10 00:00:00 2022-09-10 00:00:00 Sudeep Pa MD: [address] [place] [address], [address], [place] [address] , Ph. [phone] [facility] [id number] [facility] 2022-09-09 10:23:00 2022-09-09 10:23:00 Outpatient ERNA SMITH [facility] [id number] [facility] 2022-09-09 00:00:00 2022-09-09 00:00:00 Outpatient White_M MMG MMG [id number] [facility] 2022-09-09 00:00:00 2022-09-09 00:00:00 Outpatient White_M MMG MMG [id number] [facility] 2022-09-08 00:00:00 2022-09-08 00:00:00 Outpatient White_M MMG MMG [id number] [facility] 2022-09-06 14:37:00 2022-09-06 14:37:00 Outpatient ERNA GE [facility] [id number] [facility] 2022-09-06 00:00:00 2022-09-06 00:00:00 ErnaSATNAM Mckinney: [address] [address] , Ph. [phone] MM[facility] [id number] [facility] 2022-09-02 00:00:00 2022-09-02 00:00:00 Outpatient White_M MMG MMG [id number] [facility] 2022-08-30 00:00:00 2022-08-30 00:00:00 Sudeep Pa MD: [address] [address] , Ph. 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 [phone] MMG [facility] OBGYChristina [id number] [facility] 2022 00:00:00 2022 00:00:00 Outpatient White_M MMG MMG [id number] [facility] 2022 00:00:00 2022 00:00:00 Outpatient White_M MMG MMG [id number] [facility] 2022-07-16 00:00:00 2022-07-16 00:00:00 Case Management Bebeto Carolinajenn BAIN 1.2.840.114 350.1.13.10 4.2.7.2.[id number] [facility] 2022-07-11 00:00:00 2022-07-11 00:00:00 Outpatient White_M MMG MMG [id number] [facility] 2022-07-11 00:00:00 2022-07-11 00:00:00 Yoni Morrow MD: [address] [facility] [address], [place] [address] , Ph. [phone] MMG [facility] [id number] [facility] 2022-06-27 00:00:00 2022-06-27 00:00:00 Outpatient White_M MMG MMG [id number] [facility] 2022-06-27 00:00:00 2022-06-27 00:00:00 Yoni Morrow MD: [address] [facility] [address], [place] [address] , Ph. [phone] [facility] [id number] [facility] 2022-06-03 13:00:00 2022-06-03 13:00:00 Outpatient P [facility] [id number] [facility] 2022-05-17 12:45:00 2022-05-17 12:45:00 Outpatient MARSHA MURILLO [facility] [id number] [facility] 2022-05-14 11:32:00 2022-05-14 11:32:00 Outpatient Yoni Marc [facility] [id number] [facility] 2022-05-14 00:00:00 2022-05-14 00:00:00 Outpatient White_M MMG MMG [id number] [facility] 2022-05-14 00:00:00 2022-05-14 00:00:00 Yoni Morrow MD: [address] [address] , Ph. [phone] [facility] [id number] [facility] 2022-05-06 11:15:00 2022-05-06 11:15:00 Outpatient P [facility] [id number] [facility] 2022-05-04 00:00:00 2022-05-04 00:00:00 Orders Only Doctor Unassigned, [place] [facility] 1.2.840.114 350.1.13.10 4.2.7.2.[id number] [facility] 2022-05-01 13:30:2022-05-01 13:30:00 Outpatient CHRISTOPHE WILLOUGHBY [facility] [id number] [facility] 2022-04-30 00:00:00 2022-04-30 00:00:00 Outpatient Maxine MM[facility] [id number] [facility] 2022-04-30 00:00:00 2022-04-30 00:00:00 REX CarvajalP-BC: [address] [address] , Ph. [phone] [facility] [id number] [facility] 2022-04-29 00:00:00 2022-04-29 00:00:00 Telephone Mario Hernández [facility] ([facility] 1.840.114 350.1.13.10 4.2.7.2.[id number] [facility] 2022-04-24 00:00:00 2022-04-24 00:00:00 Orders Only Doctor Unassigned, [place] [facility] 1..114 350.1.13.10 4.2.7.2.[id number] [facility] 2022-04-19 10:30:00 2022-04-19 11:16:01 Outpatient MADHU PABON [facility] [id number] [facility] 2022-04-19 10:30:00 2022-04-19 11:16:01 Telemedici ne Visit Siomara Ocampo Joseph W [facility] 1.840.114 350.1.13.10 4.2.7.2.[id number] [facility] 2022-04-15 00:00:00 2022-04-15 00:00:00 Telephone Christophe Song [facility] 1.2.840.114 350.1.13.10 4.2.7.2.[id number] [facility] 2022-04-10 00:00:00 2022-04-10 00:00:00 Orders Only Doctor Unassigned, [place] [facility] 1.2.840.114 350.1.13.10 4.2.7.2.[id number] [facility] 2022-04-09 00:00:00 2022-04-09 00:00:00 Outpatient White_M MMG MMG [id number] [facility] 2022-04-09 00:00:00 2022-04-09 00:00:00 Abstract Francesca Mendez [facility] 1.2840.114 350.1.13.10 4.2.7.2.[id number] [facility] 2022-04-08 08:00:00 2022-04-08 14:28:43 Supervisor Agency Appointments Visit 1, [facility] Room Pamela Sibley [facility] 1.2.840.114 350.1.13.10 4.2.7.2.[id number] [facility] 2022-04-08 08:00:00 2022-04-08 08:00:00 Outpatient P PAMELA SIBLEY [facility] [id number] [facility] 2022-04-03 15:15:00 2022-04-03 15:27:46 Outpatient R CHRISTOPHE SONG [facility] [id number] [facility] 2022-04-03 15:15:00 2022-04-03 15:27:46 Routine Visit Christophe Song [facility] MATERNAL & CHILD [facility] 1.2.840.114 350.1.13.10 4.2.7.2.[id number] [facility] 2022-04-02 00:00:00 2022-04-02 00:00:00 Telephone Christophe Song [facility] CHILD [facility] 1.2.840.114 350.1.13.10 4.2.7.2.[id number] [facility] 2022-03-19 09:00:00 2022-03-19 09:51:37 Outpatient R CHRISTOPHE SONG [facility] [id number] [facility] 2022-03-19 09:00:00 2022-03-19 09:51:37 Routine Visit Marsha Chambers Roshunda [facility] & CHILD [facility] 1..840.114 350.1.13.10 4.2.7.2.[id number] [facility] 2022-03-13 00:00:00 2022-03-13 00:00:00 Case Management Christophe Song [facility] 1..840.114 350.1.13.10 4.2.7.2.[id number] [facility] 2022-03-04 15:30:00 2022-03-04 16:00:00 Telemedici ne Visit Faculty, [facility] & CHILD [facility] 1..840.114 350.1.13.10 4.2.7.2.[id number] [facility] 2022-03-04 15:30:00 2022-03-04 15:30:00 Outpatient R [facility] [id number] [facility] 2022-03-04 15:30:00 2022-03-04 15:30:00 Outpatient R EASTON MANZO [facility] [id number] [facility] 2022-02-21 00:00:00 2022-02-21 00:00:00 Case Management Christophe Song [facility] & CHILD [facility] 1..840.114 350.1.13.10 4.2.7.2.[id number] [facility] 2022-02-19 14:45:00 2022-02-19 15:13:46 Outpatient Shae CHRISTOPHE SONG [facility] [id number] [facility] 2022-02-19 14:45:00 2022-02-19 15:13:46 Initial Visit Christophe Song [facility] & CHILD [facility] 1..840.114 350.1.13.10 4.2.7.2.[id number] [facility] 2022-02-19 00:00:00 2022-02-19 00:00:00 Outpatient White_M MMG MMG [id number] [facility] 2022-02-19 00:00:00 2022-02-19 00:00:00 Orders Only Doctor Unassigned, [place] [facility] 1..840.114 350.1.13.10 4.2.7.2.[id number] [facility] 2022-01-14 13:15:00 2022-01-14 13:15:00 Outpatient Shae CHRISTOPHE SONG [facility] [id number] [facility] 2022-01-08 09:45:00 2022-01-08 09:45:00 Outpatient CHRISTOPHE WILLOUGHBY [facility] [id number] [facility] 2021-12-28 15:00:00 2021-12-28 15:00:00 Outpatient CHRISTOPHE WILLOUGHBY [facility] [id number] [facility] 2021-12-27 10:30:00 2021-12-27 11:38:58 Supervisor Agency Appointments Visit 1, [facility] Room Felipe Sibleyio Cassi [facility] 1.2.840.114 350.1.13.10 4.2.7.2.[id number] [facility] 2021-12-27 10:30:00 2021-12-27 10:30:00 Outpatient P PAMELA SIBLEY [facility] [id number] [facility] 2021-12-24 00:00:00 2021-12-24 00:00:00 Telephone Christophe Song [facility] 1.2.840.114 350.1.13.10 4.2.7.2.[id number] [facility] 2021-12-21 15:00:00 2021-12-21 15:25:54 Supervisor Agency Appointments Visit Lab, [facility] Christophe Song [facility] MA[facility] & CHILD [facility] 1.2.840.114 350.1.13.10 4.2.7.2.[id number] [facility] 2021-12-21 15:00:00 2021-12-21 15:00:00 Outpatient R CHRISTOPHE SONG [facility] [id number] [facility] 2021-12-20 08:00:00 2021-12-20 08:00:00 Outpatient R [facility] [id number] [facility] 2021-12-17 13:30:00 2021-12-17 13:30:00 Outpatient R [facility] [id number] [facility] 2021-12-17 13:30:00 2021-12-17 13:30:00 Outpatient R [facility] [id number] [facility] 2021-12-17 13:00:00 2021-12-17 13:00:00 Outpatient R [facility] [id number] [facility] 2021-12-17 13:00:00 2021-12-17 13:00:00 Outpatient R LOZAALEXUS SANGEETA [facility] [id number] [facility] 2021-12-17 00:00:00 2021-12-17 00:00:00 Telephone Christophe Song [facility] MA[facility] CHILD [facility] 1..840.114 350.1.13.10 4.2.7.2.[id number] [facility] 2021-12-13 07:45:00 2021-12-13 07:45:00 Outpatient R CHRISTOPHE SONG [facility] [id number] [facility] 2021-12-12 00:00:00 2021-12-12 00:00:00 Telephone SongChristophe [facility] CHILD [facility] 1.840.114 350.1.13.10 [id number] [facility] 2021-12-11 13:15:00 2021-12-11 13:54:16 Outpatient R SONGCHRISTOPHE [facility] [id number] [facility] 2021-12-11 13:15:00 2021-12-11 13:54:16 Routine Visit Christophe Song [facility] 1.840.114 350.1.13.10 4.2.7.2.[id number] [facility] 2021-12-11 00:00:00 2021-12-11 00:00:00 Telephone Christophe Song [facility] 1.840.114 350.1.13.10 4.2.7.2.[id number] [facility] 2021-12-07 00:00:00 2021-12-07 00:00:00 Case Management Christophe Song [facility] 1.2.840.114 350.1.13.10 4.2.7.2.[id number] [facility] 2021-12-07 00:00:00 2021-12-07 00:00:00 Case Management Christophe Song [facility] 1.2.840.114 350.1.13.10 4.2.7.2.[id number] [facility] 2021-12-05 00:00:00 2021-12-05 00:00:00 Telephone Randy Monson-Rmchp-N p/High [facility] 1.2.840.114 350.1.13.10 4.2.7.2.[id number] [facility] 2021-11-21 00:00:00 2021-11-21 00:00:00 Telephone Christophe Song [facility] [facility] 1.2.840.114 350.1.13.10 4.2.7.2.[id number] [facility] 2021-11-20 10:00:00 2021-11-20 11:37:58 Initial Visit Abiola Songtatiana Shae [facility] 1.2.840.114 350.1.13.10 4.2.7.2.[id number] [facility] 2021-11-20 10:00:00 2021-11-20 11:37:58 Outpatient R JACOB SONGMICHAEL [facility] [id number] [facility] 2021-11-20 09:30:00 2021-11-20 09:30:00 Outpatient CHRISTOPHE WILLOUGHBY [facility] [id number] [facility] 2021-11-20 00:00:00 2021-11-20 00:00:00 Orders Only Doctor Unassigned, [place] [facility] 1.2.840.114 350.1.13.10 4.2.7.2.[id number] [facility] 2021-10-26 10:45:00 2021-10-26 12:39:13 Outpatient TISH LEE [facility] [id number] [facility] 2021-10-26 10:45:00 2021-10-26 12:39:13 Routine Visit Trimester, [facility] Res-1st Tish Jimenez [facility] 1.2.840.114 350.1.13.10 4.2.7.2.[id number] [facility] 2021-10-25 00:00:00 2021-10-25 00:00:00 Telephone Christophe Song [facility]ERNAL & CHILD [facility] 1.2.840.114 350.1.13.10 4.2.7.2.[id number] [facility] 2021-10-24 08:00:00 2021-10-24 08:22:51 Supervisor Agency Appointments Visit Lab[facility] Christophe Song [facility]NAL & CHILD [facility] 1.2.840.114 350.1.13.10 4.2.7.2.[id number] [facility] 2021-10-24 08:00:00 2021-10-24 08:00:00 Outpatient CHRISTOPHE WILLOUGHBY [facility] [id number] [facility] 2021-10-18 00:00:00 2021-10-18 00:00:00 Telephone Christophe Song [facility] CHILD [facility] 1.2.840.114 350.1.13.10 4.2.7.2.[id number] [facility] 2021-10-17 13:15:00 2021-10-17 13:30:00 Office Visit Christophe Song [facility] 1.2.840.114 350.1.13.10 4.2.7.2.[id number] [facility] 2021-10-17 13:15:00 2021-10-17 13:15:00 Outpatient R CHRISTOPHE SONG [facility] [id number] [facility] 2021-10-04 00:00:00 2021-10-04 00:00:00 Telephone Christophe Song [facility] CHILD [facility] 1.2.840.114 350.1.13.10 4.2.7.2.[id number] [facility] 2021-09-21 16:17:00 2021-09-21 17:54:00 Emergency ER YONI POP [facility] [id number] [facility] 2021-09-13 00:00:00 2021-09-13 00:00:00 Outpatient White_M MM[facility] MMG [id number] [facility] 2021-08-01 14:00:00 2021-08-01 14:00:00 Outpatient R CAITLIN HUTCHINS [facility] [id number] [facility] 2021-05-02 10:00:00 2021-05-02 10:00:00 Outpatient R [facility] [id number] [facility] 2021-02-28 08:30:00 2021-02-28 08:30:00 Outpatient R [facility] [id number] [facility] 2021-02-28 00:00:00 2021-02-28 00:00:00 Patient Secure Msg Doctor Unassigned, [place] [facility] 1.2.840.114 350.1.13.10 4.2.7.2.[id number] [facility] 2021-02-28 00:00:00 2021-02-28 00:00:00 Case Management Adum, Caitlin Jane [facility] 1.2.840.114 350.1.13.10 4.2.7.2.[id number] [facility] 2021-02-27 15:53:07 2021-02-27 16:55:14 Routine Visit Adum, Caitlin Jane [facility] 1.2.840.114 350.1.13.10 4.2.7.2.[id number] [facility] 2021-02-27 16:15:00 2021-02-27 16:15:00 Outpatient R TOLU CAITLIN [facility] [id number] [facility] 2021-02-27 15:46:40 2021-02-27 16:01:40 Supervisor Agency Appointments Visit 2, Adc Lab Adum, Caitlin Jane [facility] 1.2.840.114 350.1.13.10 4.2.7.2.[id number] [facility] 2021-02-20 09:30:00 2021-02-20 09:30:00 Outpatient R CAITLIN HUTCHINS [facility] [id number] [facility] 2021-02-13 09:00:00 2021-02-13 09:00:00 Outpatient R CAITLIN HUTCHINS [facility] [id number] [facility] 2021-02-09 10:15:00 2021-02-09 10:15:00 Outpatient R TISH JIMENEZ [facility] [id number] [facility] 2021-02-07 09:04:20 2021-02-07 11:00:17 Initial Visit Risk, Ang-Rmchp-N p/High Christophe Song Karen L [facility] MATERNAL & CHILD [facility] 1.2.840.114 350.1.13.10 4.2.7.2.[id number] [facility] 2021-02-07 08:30:00 2021-02-07 08:30:00 Outpatient CHRISTOPHE WILLOUGHBY [facility] [id number] [facility] 2019-12-10 08:30:00 2019-12-10 08:30:00 Outpatient HARSHIL ASHLEY [facility] [id number] [facility] Results Test Description Test Time Test Comments Results Result Co mments Source [facility] [id number] 07:20:00* Test Item Value Reference Range Interpretation Comme nts .hepatitis B surface antigen (test code = .hepatitis B surface antigen) negative negative [facility]Hemoglobin and Hematocrit panel - [id number] 06:41:00* Test Item Value Reference Range Interpretation Comme nts hemoglobin (test code = hemoglobin) 9.1 g/dL 10.5-15.7 L hematocrit (test code = hematocrit) 30.5 % 34.0-50.0 L [facility] W Auto Differential panel - [id number] 20:56:00 * Test Item Value Reference Range Interpretation Comme nts white blood count (test code = white blood count) 11.6 K/uL 4.0-11.5 H red blood count (test code = red blood count) 3.73 M/uL 3.80-5.20 L hemoglobin (test code = hemoglobin) 7.6 g/dL 10.5-15.7 L hematocrit (test code = hematocrit) 25.6 % 34.0-50.0 L mean corpuscular volume (francisco j t code = mean corpuscular volume) 68.6 fL 86.0-100.0 L mean corpuscular hemoglobin (test code = mean corpuscular hemoglobin) 20.4 pg 26.2-33.4 L mean corpuscular HGB conc (t est code = mean corpuscular HGB conc) 29.7 g/dL 30.0-34.0 L red cell distribution width (test code = red cell distribution width) 16.6 % 12.0-15.5 H platelet count (test code = platelet count) 231 K/uL 165-450 mean platelet volume (test c ode = mean platelet volume) 9.4 fL 9.4-12.6 neutrophils % (test code = neutrophils %) 80.1 % 44.4-80.1 Ig% (test code = Ig%) 0.8 % 0.0-0.4 H lymphocyte% (test code = lymphocyte%) 13.0 % 10.0-50.0 mono % (test code = mono %) 5.6 % 3.6-12.0 eos % (test code = eos %) 0.3 % 0.0-5.4 basophil % (test code = baso raheem %) 0.2 % 0.1-1.2 absolute neutrophil count (t est code = absolute neutrophil count) 9.31 K/uL 1.56-6.13 H Ig# (test code = Ig#) 0.09 K/uL 0.00-0.03 H lymph # (test code = lymph #) 1.51 K/uL 1.18-3.74 mono # (test code = mono #) 0.65 K/uL 0.24-0.86 eos # (test code = eos #) 0.03 K/uL 0.04-0.36 L basophil # (test code = baso raheem #) 0.02 K/uL 0.01-0.08 NRBC% (test code = NRBC%) 0 /100 WBC 0-0.2 NRBC# (test code = NRBC#) 0 K/uL [facility]20[facility] 14:12:00* Test Item Value Reference Range Interpretation Comme nts RPR (test code = RPR) nonreactive nonreactive [facility] W Auto Differential panel - [id number] 05:47:00 * Test Item Value Reference Range Interpretation Comme nts white blood count (test code = white blood count) 8.4 K/uL 4.0-11.5 red blood count (test code = red blood count) 4.40 M/uL 3.80-5.20 hemoglobin (test code = hemoglobin) 8.9 g/dL 10.5-15.7 L hematocrit (test code = hematocrit) 30.2 % 34.0-50.0 L mean corpuscular volume (francisco j t code = mean corpuscular volume) 68.6 fL 86.0-100.0 L mean corpuscular hemoglobin (test code = mean corpuscular hemoglobin) 20.2 pg 26.2-33.4 L mean corpuscular HGB conc (t est code = mean corpuscular HGB conc) 29.5 g/dL 30.0-34.0 L red cell distribution width (test code = red cell distribution width) 16.8 % 12.0-15.5 H platelet count (test code = platelet count) 248 K/uL 165-450 mean platelet volume (test c ode = mean platelet volume) 9.6 fL 9.4-12.6 neutrophils % (test code = neutrophils %) 63.8 % 44.4-80.1 Ig% (test code = Ig%) 0.8 % 0.0-0.4 H lymphocyte% (test code = lymphocyte%) 24.3 % 10.0-50.0 mono % (test code = mono %) 7.8 % 3.6-12.0 eos % (test code = eos %) 2.6 % 0.0-5.4 basophil % (test code = baso raheem %) 0.7 % 0.1-1.2 absolute neutrophil count (t est code = absolute neutrophil count) 5.34 K/uL 1.56-6.13 Ig# (test code = Ig#) 0.07 K/uL 0.00-0.03 H lymph # (test code = lymph #) 2.04 K/uL 1.18-3.74 mono # (test code = mono #) 0.65 K/uL 0.24-0.86 eos # (test code = eos #) 0.22 K/uL 0.04-0.36 basophil # (test code = baso raheem #) 0.06 K/uL 0.01-0.08 NRBC% (test code = NRBC%) 0 /100 WBC 0-0.2 NRBC# (test code = NRBC#) 0 K/uL [facility] Grouptype and [id number] 05:30:00* Test Item Value Reference Range Interpretation Comme nts antibody screen (test code = antibody screen) negative blood type (test code = blood type) AP [facility]transfuse [id number] 05:30:00* Test Item Value Reference Range Interpretation Comme nts blood product code (test cod e = blood product code) PC blood unit number (test code = blood unit number) [id number] blood dispense status (test code = blood dispense status) trs blood status date/time (test code = blood status date/time) [id number] blood coding sys (test code = blood coding sys) isbt blood type (test code = bloo d type) AP expiration instant (test cod e = expiration instant) [id number] [facility] [employer] and [id number] 05:30:00* Test Item Value Reference Range Interpretation Comme nts antibody screen (test code = antibody screen) negative blood type (test code = blood type) AP [facility] [id number] 05:30:00* Test Item Value Reference Range Interpretation Comme nts blood product code (test cod e = blood product code) PC blood unit number (test code = blood unit number) [id number] blood dispense status (test code = blood dispense status) trs blood status date/time (test code = blood status date/time) [id number] blood coding sys (test code = blood coding sys) isbt blood type (test code = bloo d type) AP expiration instant (test cod e = expiration instant) [id number] [facility]inalysis macro (dipstick) panel - [id number] 10:37:06* Test Item Value Reference Range Interpretation Comme nts Leukocytes (test code = Leukocytes) Small Nitrite (test code = Nitrite) negative Urobilinogen (test code = Urobilinogen) .2 Protein (test code = Protein) 30 pH (test code = pH) 7.0 Blood (test code = Blood) Small Specific Union (test code = Specific Union) 1.015 Ketone (test code = Ketone) Negative Bilirubin (test code = Bilirubin) Negative Glucose (test code = Glucose) Negative Appearance (test code = Appearance) Clear Color (test code = Color) Yellow [facility]inalysis macro (dipstick) panel - [id number] 10:37:06* Test Item Value Reference Range Interpretation Comme nts Leukocytes (test code = Leukocytes) Small Nitrite (test code = Nitrite) negative Urobilinogen (test code = Urobilinogen) .2 Protein (test code = Protein) 30 pH (test code = pH) 7.0 Blood (test code = Blood) Small Specific Union (test code = Specific Union) 1.015 Ketone (test code = Ketone) Negative Bilirubin (test code = Bilirubin) Negative Glucose (test code = Glucose) Negative Appearance (test code = Appearance) Clear Color (test code = Color) Yellow [facility] Region[facility] protein,24 HR [id number] 14:38:00* Test Item Value Reference Range Interpretation Comme [facility] urine total protein (test co de = urine total protein) 43.3 mg/dL [facility]Comprehensive metabolic 2000 panel - Serum or Plasma 2022-09-23 14:36:00* Test Item Value Reference Range Interpretation Comme nts glucose (test code = glucose) 132 mg/dL 74-106 H blood urea nitrogen (test co de = blood urea nitrogen) 4 mg/dL 6-20 L osmolality calculated,serum (test code = osmolality calculated,serum) 271 mOsm/kg 280-300 L creatinine (test code = creatinine) 0.41 mg/dL 0.50-0.90 L glomerular filtration rate ( test code = glomerular filtration rate) > 60.00 BUN/creatinine ratio (test c ode = BUN/creatinine ratio) 9.8 12.0-20.0 L sodium level (test code = so dium level) 136 mmol/L 135-145 potassium level (test code = potassium level) 4.0 mmol/L 3.5-5.2 chloride level (test code = chloride level) 102 mmol/L 98-108 CO2 (test code = CO2) 18 mmol/L 21-32 L anion gap (test code = anion gap) 20.0 mEq/L 12.0-20.0 calcium level (test code = calcium level) 9.6 mg/dL 8.6-10.0 total protein (test code = t otal protein) 6.2 g/dL 6.6-8.7 L albumin (test code = albumin) 3.3 g/dL 3.5-5.2 L globulin (test code = globulin) 2.9 g/dL 1.5-4.5 A/G ratio (test code = A/G ratio) 1.1 >1.0 bilirubin,total (test code = bilirubin,total) < 0.2 0.0-1.2 AST/SGOT (test code = AST/SGOT) 16 U/L 15-32 ALT/SGPT (test code = ALT/SGPT) 9 U/L 0-33 alkaline phosphatase, total (test code = alkaline phosphatase, total) 144 U/L 35-105 H [facility] W Auto Differential panel - [id number] 14:32:00 * Test Item Value Reference Range Interpretation Comme nts white blood count (test code = white blood count) 8.4 K/uL 4.0-11.5 red blood count (test code = red blood count) 4.37 M/uL 3.80-5.20 hemoglobin (test code = hemoglobin) 9.0 g/dL 10.5-15.7 L hematocrit (test code = hematocrit) 30.1 % 34.0-50.0 L mean corpuscular volume (francisco j t code = mean corpuscular volume) 68.9 fL 86.0-100.0 L mean corpuscular hemoglobin (test code = mean corpuscular hemoglobin) 20.6 pg 26.2-33.4 L mean corpuscular HGB conc (t est code = mean corpuscular HGB conc) 29.9 g/dL 30.0-34.0 L red cell distribution width (test code = red cell distribution width) 16.3 % 12.0-15.5 H platelet count (test code = platelet count) 276 K/uL 165-450 mean platelet volume (test c ode = mean platelet volume) 9.8 fL 9.4-12.6 neutrophils % (test code = neutrophils %) 69.0 % 44.4-80.1 Ig% (test code = Ig%) 1.1 % 0.0-0.4 H lymphocyte% (test code = lymphocyte%) 20.3 % 10.0-50.0 mono % (test code = mono %) 7.4 % 3.6-12.0 eos % (test code = eos %) 1.8 % 0.0-5.4 basophil % (test code = baso raheem %) 0.4 % 0.1-1.2 absolute neutrophil count (t est code = absolute neutrophil count) 5.82 K/uL 1.56-6.13 Ig# (test code = Ig#) 0.09 K/uL 0.00-0.03 H lymph # (test code = lymph #) 1.71 K/uL 1.18-3.74 mono # (test code = mono #) 0.62 K/uL 0.24-0.86 eos # (test code = eos #) 0.15 K/uL 0.04-0.36 basophil # (test code = baso raheem #) 0.03 K/uL 0.01-0.08 NRBC% (test code = NRBC%) 0 /100 WBC 0-0.2 NRBC# (test code = NRBC#) 0 K/uL [facility] [Mass/time] in 24 hour [id number] 13:20:00* Test Item Value Reference Range Interpretation Comme nts urine collection time (test code = urine collection time) 24 hours urine total protein (test co de = urine total protein) 43.3 mg/dL total volume, urine (test co de = total volume, urine) 1900 mL/24 HR total protein 24 hour urine (test code = total protein 24 hour urine) 822.7 mg/day <149.1 [facility] Region[facility]inalysis macro (dipstick) panel - [id number] 16:29:07* Test Item Value Reference Range Interpretation Comme nts Leukocytes (test code = Leukocytes) Small Nitrite (test code = Nitrite) negative Urobilinogen (test code = Urobilinogen) .2 Protein (test code = Protein) 100 pH (test code = pH) 7.0 Blood (test code = Blood) Negative Specific Union (test code = Specific Union) 1.015 Ketone (test code = Ketone) Negative Bilirubin (test code = Bilirubin) Negative Glucose (test code = Glucose) Negative Appearance (test code = Appearance) Clear Color (test code = Color) Yellow [facility]ysis macro (dipstick) panel - [id number] 16:29:07* Test Item Value Reference Range Interpretation Comme nts Leukocytes (test code = Leukocytes) Small Nitrite (test code = Nitrite) negative Urobilinogen (test code = Urobilinogen) .2 Protein (test code = Protein) 100 pH (test code = pH) 7.0 Blood (test code = Blood) Negative Specific Union (test code = Specific Union) 1.015 Ketone (test code = Ketone) Negative Bilirubin (test code = Bilirubin) Negative Glucose (test code = Glucose) Negative Appearance (test code = Appearance) Clear Color (test code = Color) Yellow [facility]ysis macro (dipstick) panel - [id number] 16:14:00* Test Item Value Reference Range Interpretation Comme nts Leukocytes (test code = Leukocytes) Negative Nitrite (test code = Nitrite) negative Urobilinogen (test code = Urobilinogen) .2 Protein (test code = Protein) 300 pH (test code = pH) 6.0 Blood (test code = Blood) Non-Hemolyzed: Trace Specific Union (test code = Specific Union) 1.030 Ketone (test code = Ketone) Negative Bilirubin (test code = Bilirubin) Negative Glucose (test code = Glucose) Negative Appearance (test code = Appearance) Clear Color (test code = Color) Yellow [facility]ysis macro (dipstick) panel - [id number] 16:14:00* Test Item Value Reference Range Interpretation Comme nts Leukocytes (test code = Leukocytes) Negative Nitrite (test code = Nitrite) negative Urobilinogen (test code = Urobilinogen) .2 Protein (test code = Protein) 300 pH (test code = pH) 6.0 Blood (test code = Blood) Non-Hemolyzed: Trace Specific Union (test code = Specific Union) 1.030 Ketone (test code = Ketone) Negative Bilirubin (test code = Bilirubin) Negative Glucose (test code = Glucose) Negative Appearance (test code = Appearance) Clear Color (test code = Color) Yellow [facility]dip[facility]) panel - [id number] 16:14:00* Test Item Value Reference Range Interpretation Comme nts Leukocytes (test code = Leukocytes) Negative Nitrite (test code = Nitrite) negative Urobilinogen (test code = Urobilinogen) .2 Protein (test code = Protein) 300 pH (test code = pH) 6.0 Blood (test code = Blood) Non-Hemolyzed: Trace Specific Union (test code = Specific Union) 1.030 Ketone (test code = Ketone) Negative Bilirubin (test code = Bilirubin) Negative Glucose (test code = Glucose) Negative Appearance (test code = Appearance) Clear Color (test code = Color) Yellow [facility], vaginal/rectal, streptococcus group [id number] 00:00:00* Test Item Value Reference Range Interpretation Comme nts group B strep (test code = g roup B strep) negative [facility], vaginal/rectal, streptococcus group [id number] 00:00:00* Test Item Value Reference Range Interpretation Comme nts group B strep (test code = g roup B strep) negative [facility], LB + CT/NG/TV + HPV + reflex HPV (16+18+45) 2022-09-14 00:00:00* Test Item Value Reference Range Interpretation Comme nts TP HR HPV,16/18,CT/NG/TV (te st code = TP HR HPV,16/18,CT/NG/TV) normal CT/NG (test code = CT/NG) normal HPV (test code = HPV) normal trichomonas vaginalis addon - swab (test code = trichomonas vaginalis addon - swab) normal [facility] GroupUrinalysis macro (dipstick) panel - [id number] 13:59:22* Test Item Value Reference Range Interpretation Comme nts Leukocytes (test code = Leukocytes) Small Nitrite (test code = Nitrite) negative Urobilinogen (test code = Urobilinogen) .2 Protein (test code = Protein) Trace pH (test code = pH) 7.0 Blood (test code = Blood) Non-Hemolyzed: Trace Specific Union (test code = Specific Union) 1.015 Ketone (test code = Ketone) Negative Bilirubin (test code = Bilirubin) Negative Glucose (test code = Glucose) Negative Appearance (test code = Appearance) Slightly Cloudy Color (test code = Color) Yellow [facility]ysis macro (dipstick) panel - [id number] 13:59:22* Test Item Value Reference Range Interpretation Comme nts Leukocytes (test code = Leukocytes) Small Nitrite (test code = Nitrite) negative Urobilinogen (test code = Urobilinogen) .2 Protein (test code = Protein) Trace pH (test code = pH) 7.0 Blood (test code = Blood) Non-Hemolyzed: Trace Specific Union (test code = Specific Union) 1.015 Ketone (test code = Ketone) Negative Bilirubin (test code = Bilirubin) Negative Glucose (test code = Glucose) Negative Appearance (test code = Appearance) Slightly Cloudy Color (test code = Color) Yellow [facility]inalysis macro (dipstick) panel - [id number] 13:59:22* Test Item Value Reference Range Interpretation Comme nts Leukocytes (test code = Leukocytes) Small Nitrite (test code = Nitrite) negative Urobilinogen (test code = Urobilinogen) .2 Protein (test code = Protein) Trace pH (test code = pH) 7.0 Blood (test code = Blood) Non-Hemolyzed: Trace Specific Union (test code = Specific Union) 1.015 Ketone (test code = Ketone) Negative Bilirubin (test code = Bilirubin) Negative Glucose (test code = Glucose) Negative Appearance (test code = Appearance) Slightly Cloudy Color (test code = Color) Yellow [facility] RegionUrinalysis macro (dipstick) panel - [id number] 13:59:22* Test Item Value Reference Range Interpretation Comme nts Leukocytes (test code = Leukocytes) Small Nitrite (test code = Nitrite) negative Urobilinogen (test code = Urobilinogen) .2 Protein (test code = Protein) Trace pH (test code = pH) 7.0 Blood (test code = Blood) Non-Hemolyzed: Trace Specific Union (test code = Specific Union) 1.015 Ketone (test code = Ketone) Negative Bilirubin (test code = Bilirubin) Negative Glucose (test code = Glucose) Negative Appearance (test code = Appearance) Slightly Cloudy Color (test code = Color) Yellow [facility] Groupculture, vaginal/rectal, streptococcus group [id number] 00:00:00* Test Item Value Reference Range Interpretation Comme nts group B strep (test code = g roup B strep) negative [facility] GroupCT + NG + TV, DNA, urine/[id number] 00:00:00* Test Item Value Reference Range Interpretation Comme nts CT/NG (test code = CT/NG) normal trichomonas vaginalis addon - swab (test code = trichomonas vaginalis addon - swab) normal [facility] Groupculture, vaginal/rectal, streptococcus group [id number] 00:00:00* Test Item Value Reference Range Interpretation Comme nts group B strep (test code = g roup B strep) negative [facility] GroupCT + NG + TV, DNA, urine/[id number] 00:00:00* Test Item Value Reference Range Interpretation Comme nts CT/NG (test code = CT/NG) normal trichomonas vaginalis addon - swab (test code = trichomonas vaginalis addon - swab) normal [facility] Groupculture, vaginal/rectal, streptococcus group [id number] 00:00:00* Test Item Value Reference Range Interpretation Comme nts group B strep (test code = g roup B strep) negative [facility] GroupCT + NG + TV, DNA, urine/[id number] 00:00:00* Test Item Value Reference Range Interpretation Comme nts CT/NG (test code = CT/NG) normal trichomonas vaginalis addon - swab (test code = trichomonas vaginalis addon - swab) normal [facility] Group[facility], vaginal/rectal, streptococcus group [id number] 00:00:00* Test Item Value Reference Range Interpretation Comme nts group B strep (test code = g roup B strep) negative [facility] GroupCT + NG + TV, DNA, urine/[id number] 00:00:00* Test Item Value Reference Range Interpretation Comme nts CT/NG (test code = CT/NG) normal trichomonas vaginalis addon - swab (test code = trichomonas vaginalis addon - swab) normal [facility] macro (dipstick) panel - [id number] 15:53:26* Test Item Value Reference Range Interpretation Comme nts Leukocytes (test code = Leukocytes) Small Nitrite (test code = Nitrite) negative Urobilinogen (test code = Urobilinogen) .2 Protein (test code = Protein) 100 pH (test code = pH) 7.0 Blood (test code = Blood) Non-Hemolyzed: Trace Specific Union (test code = Specific Union) 1.025 Ketone (test code = Ketone) Trace Bilirubin (test code = Bilirubin) Negative Glucose (test code = Glucose) Negative Appearance (test code = Appearance) Slightly Cloudy Color (test code = Color) Yellow [facility] - [id number] 15:53:26* Test Item Value Reference Range Interpretation Comme nts Leukocytes (test code = Leukocytes) Small Nitrite (test code = Nitrite) negative Urobilinogen (test code = Urobilinogen) .2 Protein (test code = Protein) 100 pH (test code = pH) 7.0 Blood (test code = Blood) Non-Hemolyzed: Trace Specific Union (test code = Specific Union) 1.025 Ketone (test code = Ketone) Trace Bilirubin (test code = Bilirubin) Negative Glucose (test code = Glucose) Negative Appearance (test code = Appearance) Slightly Cloudy Color (test code = Color) Yellow [facility] panel - [id number] 15:53:26* Test Item Value Reference Range Interpretation Comme nts Leukocytes (test code = Leukocytes) Small Nitrite (test code = Nitrite) negative Urobilinogen (test code = Urobilinogen) .2 Protein (test code = Protein) 100 pH (test code = pH) 7.0 Blood (test code = Blood) Non-Hemolyzed: Trace Specific Union (test code = Specific Union) 1.025 Ketone (test code = Ketone) Trace Bilirubin (test code = Bilirubin) Negative Glucose (test code = Glucose) Negative Appearance (test code = Appearance) Slightly Cloudy Color (test code = Color) Yellow [facility]dipstick[facility] panel - [id number] 15:53:26* Test Item Value Reference Range Interpretation Comme nts Leukocytes (test code = Leukocytes) Small Nitrite (test code = Nitrite) negative Urobilinogen (test code = Urobilinogen) .2 Protein (test code = Protein) 100 pH (test code = pH) 7.0 Blood (test code = Blood) Non-Hemolyzed: Trace Specific Union (test code = Specific Union) 1.025 Ketone (test code = Ketone) Trace Bilirubin (test code = Bilirubin) Negative Glucose (test code = Glucose) Negative Appearance (test code = Appearance) Slightly Cloudy Color (test code = Color) Yellow [facility]dipstick[facility] panel - [id number] 15:53:26* Test Item Value Reference Range Interpretation Comme nts Leukocytes (test code = Leukocytes) Small Nitrite (test code = Nitrite) negative Urobilinogen (test code = Urobilinogen) .2 Protein (test code = Protein) 100 pH (test code = pH) 7.0 Blood (test code = Blood) Non-Hemolyzed: Trace Specific Union (test code = Specific Union) 1.025 Ketone (test code = Ketone) Trace Bilirubin (test code = Bilirubin) Negative Glucose (test code = Glucose) Negative Appearance (test code = Appearance) Slightly Cloudy Color (test code = Color) Yellow [facility] + TV, DNA, [id number] 00:00:00* Test Item Value Reference Range Interpretation Comme nts abdon - swab (test code = abdon - swab) abnormal A gardnerella (test code = gardnerella) abnormal A CT/NG (test code = CT/NG) normal trichomonas vaginalis addon - swab (test code = trichomonas vaginalis addon - swab) normal [facility] + TV, DNA, [id number] 00:00:00* Test Item Value Reference Range Interpretation Comme nts abdon - swab (test code = abdon - swab) normal gardnerella (test code = gardnerella) normal CT/NG (test code = CT/NG) normal trichomonas vaginalis addon - swab (test code = trichomonas vaginalis addon - swab) normal [facility] + TV, DNA, [id number] 00:00:00* Test Item Value Reference Range Interpretation Comme nts abdon - swab (test code = abdon - swab) normal gardnerella (test code = gardnerella) normal CT/NG (test code = CT/NG) normal trichomonas vaginalis addon - swab (test code = trichomonas vaginalis addon - swab) normal [facility] [id number] 10:30:00* Test Item Value Reference Range Interpretation Comme nts quest collection (test code = quest collection) [facility] [id number] 10:30:00* Test Item Value Reference Range Interpretation Comme [facility] quest collection (test code = quest collection) [facility] [id number] 10:30:00* Test Item Value Reference Range Interpretation Comme [facility] quest collection (test code = quest collection) [facility] [id number] 10:30:00* Test Item Value Reference Range Interpretation Comme [facility] quest collection (test code = quest collection) [facility] [id number] 10:30:00* Test Item Value Reference Range Interpretation Comme [facility] quest collection (test code = quest collection) [facility] - Serum or Plasma 2022-09-06 17:34:00* Test Item Value Reference Range Interpretation Comme [facility] glucose (test code = glucose) 122 mg/dL 74-106 H blood urea nitrogen (test co de = blood urea nitrogen) 5 mg/dL 6-20 L osmolality calculated,serum (test code = osmolality calculated,serum) 272 mOsm/kg 280-300 L creatinine (test code = creatinine) 0.53 mg/dL 0.50-0.90 glomerular filtration rate ( test code = glomerular filtration rate) > 60.00 BUN/creatinine ratio (test c ode = BUN/creatinine ratio) 9.4 12.0-20.0 L sodium level (test code = so dium level) 137 mmol/L 135-145 potassium level (test code = potassium level) 4.2 mmol/L 3.5-5.2 chloride level (test code = chloride level) 103 mmol/L 98-108 CO2 (test code = CO2) 21 mmol/L 21-32 anion gap (test code = anion gap) 17.2 mEq/L 12.0-20.0 calcium level (test code = calcium level) 9.4 mg/dL 8.6-10.0 total protein (test code = t otal protein) 6.8 g/dL 6.6-8.7 albumin (test code = albumin) 3.4 g/dL 3.5-5.2 L globulin (test code = globulin) 3.4 g/dL 1.5-4.5 A/G ratio (test code = A/G ratio) 1.0 >1.0 bilirubin,total (test code = bilirubin,total) < 0.2 0.0-1.2 AST/SGOT (test code = AST/SGOT) 19 U/L 15-32 ALT/SGPT (test code = ALT/SGPT) 9 U/L 0-33 alkaline phosphatase, total (test code = alkaline phosphatase, total) 131 U/L 35-105 H [facility] - Serum or Plasma 2022-09-06 17:34:00* Test Item Value Reference Range Interpretation Comme nts glucose (test code = glucose) 122 mg/dL 74-106 H blood urea nitrogen (test co de = blood urea nitrogen) 5 mg/dL 6-20 L osmolality calculated,serum (test code = osmolality calculated,serum) 272 mOsm/kg 280-300 L creatinine (test code = creatinine) 0.53 mg/dL 0.50-0.90 glomerular filtration rate ( test code = glomerular filtration rate) > 60.00 BUN/creatinine ratio (test c ode = BUN/creatinine ratio) 9.4 12.0-20.0 L sodium level (test code = so dium level) 137 mmol/L 135-145 potassium level (test code = potassium level) 4.2 mmol/L 3.5-5.2 chloride level (test code = chloride level) 103 mmol/L 98-108 CO2 (test code = CO2) 21 mmol/L 21-32 anion gap (test code = anion gap) 17.2 mEq/L 12.0-20.0 calcium level (test code = calcium level) 9.4 mg/dL 8.6-10.0 total protein (test code = t otal protein) 6.8 g/dL 6.6-8.7 albumin (test code = albumin) 3.4 g/dL 3.5-5.2 L globulin (test code = globulin) 3.4 g/dL 1.5-4.5 A/G ratio (test code = A/G ratio) 1.0 >1.0 bilirubin,total (test code = bilirubin,total) < 0.2 0.0-1.2 AST/SGOT (test code = AST/SGOT) 19 U/L 15-32 ALT/SGPT (test code = ALT/SGPT) 9 U/L 0-33 alkaline phosphatase, total (test code = alkaline phosphatase, total) 131 U/L 35-105 H [facility] - Serum or Plasma 2022-09-06 17:34:00* Test Item Value Reference Range Interpretation Comme nts glucose (test code = glucose) 122 mg/dL 74-106 H blood urea nitrogen (test co de = blood urea nitrogen) 5 mg/dL 6-20 L osmolality calculated,serum (test code = osmolality calculated,serum) 272 mOsm/kg 280-300 L creatinine (test code = creatinine) 0.53 mg/dL 0.50-0.90 glomerular filtration rate ( test code = glomerular filtration rate) > 60.00 BUN/creatinine ratio (test c ode = BUN/creatinine ratio) 9.4 12.0-20.0 L sodium level (test code = so dium level) 137 mmol/L 135-145 potassium level (test code = potassium level) 4.2 mmol/L 3.5-5.2 chloride level (test code = chloride level) 103 mmol/L 98-108 CO2 (test code = CO2) 21 mmol/L 21-32 anion gap (test code = anion gap) 17.2 mEq/L 12.0-20.0 calcium level (test code = calcium level) 9.4 mg/dL 8.6-10.0 total protein (test code = t otal protein) 6.8 g/dL 6.6-8.7 albumin (test code = albumin) 3.4 g/dL 3.5-5.2 L globulin (test code = globulin) 3.4 g/dL 1.5-4.5 A/G ratio (test code = A/G ratio) 1.0 >1.0 bilirubin,total (test code = bilirubin,total) < 0.2 0.0-1.2 AST/SGOT (test code = AST/SGOT) 19 U/L 15-32 ALT/SGPT (test code = ALT/SGPT) 9 U/L 0-33 alkaline phosphatase, total (test code = alkaline phosphatase, total) 131 U/L 35-105 H [facility] - Serum or Plasma 2022-09-06 17:34:00* Test Item Value Reference Range Interpretation Comme nts glucose (test code = glucose) 122 mg/dL 74-106 H blood urea nitrogen (test co de = blood urea nitrogen) 5 mg/dL 6-20 L osmolality calculated,serum (test code = osmolality calculated,serum) 272 mOsm/kg 280-300 L creatinine (test code = creatinine) 0.53 mg/dL 0.50-0.90 glomerular filtration rate ( test code = glomerular filtration rate) > 60.00 BUN/creatinine ratio (test c ode = BUN/creatinine ratio) 9.4 12.0-20.0 L sodium level (test code = so dium level) 137 mmol/L 135-145 potassium level (test code = potassium level) 4.2 mmol/L 3.5-5.2 chloride level (test code = chloride level) 103 mmol/L 98-108 CO2 (test code = CO2) 21 mmol/L 21-32 anion gap (test code = anion gap) 17.2 mEq/L 12.0-20.0 calcium level (test code = calcium level) 9.4 mg/dL 8.6-10.0 total protein (test code = t otal protein) 6.8 g/dL 6.6-8.7 albumin (test code = albumin) 3.4 g/dL 3.5-5.2 L globulin (test code = globulin) 3.4 g/dL 1.5-4.5 A/G ratio (test code = A/G ratio) 1.0 >1.0 bilirubin,total (test code = bilirubin,total) < 0.2 0.0-1.2 AST/SGOT (test code = AST/SGOT) 19 U/L 15-32 ALT/SGPT (test code = ALT/SGPT) 9 U/L 0-33 alkaline phosphatase, total (test code = alkaline phosphatase, total) 131 U/L 35-105 H [facility] - Serum or Plasma 2022-09-06 17:34:00* Test Item Value Reference Range Interpretation Comme [facility] glucose (test code = glucose) 122 mg/dL 74-106 H blood urea nitrogen (test co de = blood urea nitrogen) 5 mg/dL 6-20 L osmolality calculated,serum (test code = osmolality calculated,serum) 272 mOsm/kg 280-300 L creatinine (test code = creatinine) 0.53 mg/dL 0.50-0.90 glomerular filtration rate ( test code = glomerular filtration rate) > 60.00 BUN/creatinine ratio (test c ode = BUN/creatinine ratio) 9.4 12.0-20.0 L sodium level (test code = so dium level) 137 mmol/L 135-145 potassium level (test code = potassium level) 4.2 mmol/L 3.5-5.2 chloride level (test code = chloride level) 103 mmol/L 98-108 CO2 (test code = CO2) 21 mmol/L 21-32 anion gap (test code = anion gap) 17.2 mEq/L 12.0-20.0 calcium level (test code = calcium level) 9.4 mg/dL 8.6-10.0 total protein (test code = t otal protein) 6.8 g/dL 6.6-8.7 albumin (test code = albumin) 3.4 g/dL 3.5-5.2 L globulin (test code = globulin) 3.4 g/dL 1.5-4.5 A/G ratio (test code = A/G ratio) 1.0 >1.0 bilirubin,total (test code = bilirubin,total) < 0.2 0.0-1.2 AST/SGOT (test code = AST/SGOT) 19 U/L 15-32 ALT/SGPT (test code = ALT/SGPT) 9 U/L 0-33 alkaline phosphatase, total (test code = alkaline phosphatase, total) 131 U/L 35-105 H [facility] Differential panel - [id number] 17:18:00 * Test Item Value Reference Range Interpretation Comme nts white blood count (test code = white blood count) 9.7 K/uL 4.0-11.5 red blood count (test code = red blood count) 4.33 M/uL 3.80-5.20 hemoglobin (test code = hemoglobin) 9.2 g/dL 10.5-15.7 L hematocrit (test code = hematocrit) 30.1 % 34.0-50.0 L mean corpuscular volume (francisco j t code = mean corpuscular volume) 69.5 fL 86.0-100.0 L mean corpuscular hemoglobin (test code = mean corpuscular hemoglobin) 21.2 pg 26.2-33.4 L mean corpuscular HGB conc (t est code = mean corpuscular HGB conc) 30.6 g/dL 30.0-34.0 red cell distribution width (test code = red cell distribution width) 15.5 % 12.0-15.5 platelet count (test code = platelet count) 257 K/uL 165-450 mean platelet volume (test c ode = mean platelet volume) 9.5 fL 9.4-12.6 neutrophils % (test code = neutrophils %) 68.9 % 44.4-80.1 Ig% (test code = Ig%) 1.1 % 0.0-0.4 H lymphocyte% (test code = lymphocyte%) 20.3 % 10.0-50.0 mono % (test code = mono %) 8.0 % 3.6-12.0 eos % (test code = eos %) 1.4 % 0.0-5.4 basophil % (test code = baso raheem %) 0.3 % 0.1-1.2 absolute neutrophil count (t est code = absolute neutrophil count) 6.66 K/uL 1.56-6.13 H Ig# (test code = Ig#) 0.11 K/uL 0.00-0.03 H lymph # (test code = lymph #) 1.97 K/uL 1.18-3.74 mono # (test code = mono #) 0.78 K/uL 0.24-0.86 eos # (test code = eos #) 0.14 K/uL 0.04-0.36 basophil # (test code = baso raheem #) 0.03 K/uL 0.01-0.08 NRBC% (test code = NRBC%) 0 /100 WBC 0-0.2 NRBC# (test code = NRBC#) 0 K/uL [facility] W Auto Differential panel - [id number] 17:18:00 * Test Item Value Reference Range Interpretation Comme nts white blood count (test code = white blood count) 9.7 K/uL 4.0-11.5 red blood count (test code = red blood count) 4.33 M/uL 3.80-5.20 hemoglobin (test code = hemoglobin) 9.2 g/dL 10.5-15.7 L hematocrit (test code = hematocrit) 30.1 % 34.0-50.0 L mean corpuscular volume (francisco j t code = mean corpuscular volume) 69.5 fL 86.0-100.0 L mean corpuscular hemoglobin (test code = mean corpuscular hemoglobin) 21.2 pg 26.2-33.4 L mean corpuscular HGB conc (t est code = mean corpuscular HGB conc) 30.6 g/dL 30.0-34.0 red cell distribution width (test code = red cell distribution width) 15.5 % 12.0-15.5 platelet count (test code = platelet count) 257 K/uL 165-450 mean platelet volume (test c ode = mean platelet volume) 9.5 fL 9.4-12.6 neutrophils % (test code = neutrophils %) 68.9 % 44.4-80.1 Ig% (test code = Ig%) 1.1 % 0.0-0.4 H lymphocyte% (test code = lymphocyte%) 20.3 % 10.0-50.0 mono % (test code = mono %) 8.0 % 3.6-12.0 eos % (test code = eos %) 1.4 % 0.0-5.4 basophil % (test code = baso raheem %) 0.3 % 0.1-1.2 absolute neutrophil count (t est code = absolute neutrophil count) 6.66 K/uL 1.56-6.13 H Ig# (test code = Ig#) 0.11 K/uL 0.00-0.03 H lymph # (test code = lymph #) 1.97 K/uL 1.18-3.74 mono # (test code = mono #) 0.78 K/uL 0.24-0.86 eos # (test code = eos #) 0.14 K/uL 0.04-0.36 basophil # (test code = baso raheem #) 0.03 K/uL 0.01-0.08 NRBC% (test code = NRBC%) 0 /100 WBC 0-0.2 NRBC# (test code = NRBC#) 0 K/uL [facility] W Auto Differential panel - [id number] 17:18:00 * Test Item Value Reference Range Interpretation Comme nts white blood count (test code = white blood count) 9.7 K/uL 4.0-11.5 red blood count (test code = red blood count) 4.33 M/uL 3.80-5.20 hemoglobin (test code = hemoglobin) 9.2 g/dL 10.5-15.7 L hematocrit (test code = hematocrit) 30.1 % 34.0-50.0 L mean corpuscular volume (francisco j t code = mean corpuscular volume) 69.5 fL 86.0-100.0 L mean corpuscular hemoglobin (test code = mean corpuscular hemoglobin) 21.2 pg 26.2-33.4 L mean corpuscular HGB conc (t est code = mean corpuscular HGB conc) 30.6 g/dL 30.0-34.0 red cell distribution width (test code = red cell distribution width) 15.5 % 12.0-15.5 platelet count (test code = platelet count) 257 K/uL 165-450 mean platelet volume (test c ode = mean platelet volume) 9.5 fL 9.4-12.6 neutrophils % (test code = neutrophils %) 68.9 % 44.4-80.1 Ig% (test code = Ig%) 1.1 % 0.0-0.4 H lymphocyte% (test code = lymphocyte%) 20.3 % 10.0-50.0 mono % (test code = mono %) 8.0 % 3.6-12.0 eos % (test code = eos %) 1.4 % 0.0-5.4 basophil % (test code = baso raheem %) 0.3 % 0.1-1.2 absolute neutrophil count (t est code = absolute neutrophil count) 6.66 K/uL 1.56-6.13 H Ig# (test code = Ig#) 0.11 K/uL 0.00-0.03 H lymph # (test code = lymph #) 1.97 K/uL 1.18-3.74 mono # (test code = mono #) 0.78 K/uL 0.24-0.86 eos # (test code = eos #) 0.14 K/uL 0.04-0.36 basophil # (test code = baso raheem #) 0.03 K/uL 0.01-0.08 NRBC% (test code = NRBC%) 0 /100 WBC 0-0.2 NRBC# (test code = NRBC#) 0 K/uL [facility] W Auto Differential panel - [id number] 17:18:00 * Test Item Value Reference Range Interpretation Comme nts white blood count (test code = white blood count) 9.7 K/uL 4.0-11.5 red blood count (test code = red blood count) 4.33 M/uL 3.80-5.20 hemoglobin (test code = hemoglobin) 9.2 g/dL 10.5-15.7 L hematocrit (test code = hematocrit) 30.1 % 34.0-50.0 L mean corpuscular volume (francisco j t code = mean corpuscular volume) 69.5 fL 86.0-100.0 L mean corpuscular hemoglobin (test code = mean corpuscular hemoglobin) 21.2 pg 26.2-33.4 L mean corpuscular HGB conc (t est code = mean corpuscular HGB conc) 30.6 g/dL 30.0-34.0 red cell distribution width (test code = red cell distribution width) 15.5 % 12.0-15.5 platelet count (test code = platelet count) 257 K/uL 165-450 mean platelet volume (test c ode = mean platelet volume) 9.5 fL 9.4-12.6 neutrophils % (test code = neutrophils %) 68.9 % 44.4-80.1 Ig% (test code = Ig%) 1.1 % 0.0-0.4 H lymphocyte% (test code = lymphocyte%) 20.3 % 10.0-50.0 mono % (test code = mono %) 8.0 % 3.6-12.0 eos % (test code = eos %) 1.4 % 0.0-5.4 basophil % (test code = baso raheem %) 0.3 % 0.1-1.2 absolute neutrophil count (t est code = absolute neutrophil count) 6.66 K/uL 1.56-6.13 H Ig# (test code = Ig#) 0.11 K/uL 0.00-0.03 H lymph # (test code = lymph #) 1.97 K/uL 1.18-3.74 mono # (test code = mono #) 0.78 K/uL 0.24-0.86 eos # (test code = eos #) 0.14 K/uL 0.04-0.36 basophil # (test code = baso raheem #) 0.03 K/uL 0.01-0.08 NRBC% (test code = NRBC%) 0 /100 WBC 0-0.2 NRBC# (test code = NRBC#) 0 K/uL [facility] W Auto Differential panel - [id number] 17:18:00 * Test Item Value Reference Range Interpretation Comme nts white blood count (test code = white blood count) 9.7 K/uL 4.0-11.5 red blood count (test code = red blood count) 4.33 M/uL 3.80-5.20 hemoglobin (test code = hemoglobin) 9.2 g/dL 10.5-15.7 L hematocrit (test code = hematocrit) 30.1 % 34.0-50.0 L mean corpuscular volume (francisco j t code = mean corpuscular volume) 69.5 fL 86.0-100.0 L mean corpuscular hemoglobin (test code = mean corpuscular hemoglobin) 21.2 pg 26.2-33.4 L mean corpuscular HGB conc (t est code = mean corpuscular HGB conc) 30.6 g/dL 30.0-34.0 red cell distribution width (test code = red cell distribution width) 15.5 % 12.0-15.5 platelet count (test code = platelet count) 257 K/uL 165-450 mean platelet volume (test c ode = mean platelet volume) 9.5 fL 9.4-12.6 neutrophils % (test code = neutrophils %) 68.9 % 44.4-80.1 Ig% (test code = Ig%) 1.1 % 0.0-0.4 H lymphocyte% (test code = lymphocyte%) 20.3 % 10.0-50.0 mono % (test code = mono %) 8.0 % 3.6-12.0 eos % (test code = eos %) 1.4 % 0.0-5.4 basophil % (test code = baso raheem %) 0.3 % 0.1-1.2 absolute neutrophil count (t est code = absolute neutrophil count) 6.66 K/uL 1.56-6.13 H Ig# (test code = Ig#) 0.11 K/uL 0.00-0.03 H lymph # (test code = lymph #) 1.97 K/uL 1.18-3.74 mono # (test code = mono #) 0.78 K/uL 0.24-0.86 eos # (test code = eos #) 0.14 K/uL 0.04-0.36 basophil # (test code = baso raheem #) 0.03 K/uL 0.01-0.08 NRBC% (test code = NRBC%) 0 /100 WBC 0-0.2 NRBC# (test code = NRBC#) 0 K[facility]uL [facility] - [id number] 14:36:02* Test Item Value Reference Range Interpretation Comme nts Leukocytes (test code = Leukocytes) Trace Nitrite (test code = Nitrite) negative Urobilinogen (test code = Urobilinogen) .2 Protein (test code = Protein) 100 pH (test code = pH) 6.0 Blood (test code = Blood) Moderate Specific Union (test code = Specific Union) 1.030 Ketone (test code = Ketone) Negative Bilirubin (test code = Bilirubin) Negative Glucose (test code = Glucose) Negative Appearance (test code = Appearance) Clear Color (test code = Color) Yellow [facility]dipstick[facility] - [id number] 14:36:02* Test Item Value Reference Range Interpretation Comme nts Leukocytes (test code = Leukocytes) Trace Nitrite (test code = Nitrite) negative Urobilinogen (test code = Urobilinogen) .2 Protein (test code = Protein) 100 pH (test code = pH) 6.0 Blood (test code = Blood) Moderate Specific Union (test code = Specific Union) 1.030 Ketone (test code = Ketone) Negative Bilirubin (test code = Bilirubin) Negative Glucose (test code = Glucose) Negative Appearance (test code = Appearance) Clear Color (test code = Color) Yellow [facility]dipstick[facility] panel - [id number] 14:36:02* Test Item Value Reference Range Interpretation Comme nts Leukocytes (test code = Leukocytes) Trace Nitrite (test code = Nitrite) negative Urobilinogen (test code = Urobilinogen) .2 Protein (test code = Protein) 100 pH (test code = pH) 6.0 Blood (test code = Blood) Moderate Specific Union (test code = Specific Union) 1.030 Ketone (test code = Ketone) Negative Bilirubin (test code = Bilirubin) Negative Glucose (test code = Glucose) Negative Appearance (test code = Appearance) Clear Color (test code = Color) Yellow [facility]dipstick[facility] panel - [id number] 14:36:02* Test Item Value Reference Range Interpretation Comme nts Leukocytes (test code = Leukocytes) Trace Nitrite (test code = Nitrite) negative Urobilinogen (test code = Urobilinogen) .2 Protein (test code = Protein) 100 pH (test code = pH) 6.0 Blood (test code = Blood) Moderate Specific Union (test code = Specific Union) 1.030 Ketone (test code = Ketone) Negative Bilirubin (test code = Bilirubin) Negative Glucose (test code = Glucose) Negative Appearance (test code = Appearance) Clear Color (test code = Color) Yellow [facility] - [id number] 14:36:02* Test Item Value Reference Range Interpretation Comme nts Leukocytes (test code = Leukocytes) Trace Nitrite (test code = Nitrite) negative Urobilinogen (test code = Urobilinogen) .2 Protein (test code = Protein) 100 pH (test code = pH) 6.0 Blood (test code = Blood) Moderate Specific Union (test code = Specific Union) 1.030 Ketone (test code = Ketone) Negative Bilirubin (test code = Bilirubin) Negative Glucose (test code = Glucose) Negative Appearance (test code = Appearance) Clear Color (test code = Color) Yellow [facility]dipstick[facility] panel - [id number] 14:36:02* Test Item Value Reference Range Interpretation Comme nts Leukocytes (test code = Leukocytes) Trace Nitrite (test code = Nitrite) negative Urobilinogen (test code = Urobilinogen) .2 Protein (test code = Protein) 100 pH (test code = pH) 6.0 Blood (test code = Blood) Moderate Specific Union (test code = Specific Union) 1.030 Ketone (test code = Ketone) Negative Bilirubin (test code = Bilirubin) Negative Glucose (test code = Glucose) Negative Appearance (test code = Appearance) Clear Color (test code = Color) Yellow [facility]stick[facility] panel - [id number] 10:49:06* Test Item Value Reference Range Interpretation Comme nts Leukocytes (test code = Leukocytes) Small Nitrite (test code = Nitrite) negative Urobilinogen (test code = Urobilinogen) 1 Protein (test code = Protein) 100 pH (test code = pH) 6.5 Blood (test code = Blood) Non-Hemolyzed: Trace Specific Union (test code = Specific Union) 1.025 Ketone (test code = Ketone) Trace Bilirubin (test code = Bilirubin) Negative Glucose (test code = Glucose) Negative Appearance (test code = Appearance) Slightly Cloudy Color (test code = Color) Yellow [facility]dipstick[facility] panel - [id number] 10:49:06* Test Item Value Reference Range Interpretation Comme nts Leukocytes (test code = Leukocytes) Small Nitrite (test code = Nitrite) negative Urobilinogen (test code = Urobilinogen) 1 Protein (test code = Protein) 100 pH (test code = pH) 6.5 Blood (test code = Blood) Non-Hemolyzed: Trace Specific Union (test code = Specific Union) 1.025 Ketone (test code = Ketone) Trace Bilirubin (test code = Bilirubin) Negative Glucose (test code = Glucose) Negative Appearance (test code = Appearance) Slightly Cloudy Color (test code = Color) Yellow [facility] (dipstick) panel - [id number] 10:49:06* Test Item Value Reference Range Interpretation Comme nts Leukocytes (test code = Leukocytes) Small Nitrite (test code = Nitrite) negative Urobilinogen (test code = Urobilinogen) 1 Protein (test code = Protein) 100 pH (test code = pH) 6.5 Blood (test code = Blood) Non-Hemolyzed: Trace Specific Union (test code = Specific Union) 1.025 Ketone (test code = Ketone) Trace Bilirubin (test code = Bilirubin) Negative Glucose (test code = Glucose) Negative Appearance (test code = Appearance) Slightly Cloudy Color (test code = Color) Yellow [facility] macro (dipstick) panel - [id number] 10:49:06* Test Item Value Reference Range Interpretation Comme nts Leukocytes (test code = Leukocytes) Small Nitrite (test code = Nitrite) negative Urobilinogen (test code = Urobilinogen) 1 Protein (test code = Protein) 100 pH (test code = pH) 6.5 Blood (test code = Blood) Non-Hemolyzed: Trace Specific Union (test code = Specific Union) 1.025 Ketone (test code = Ketone) Trace Bilirubin (test code = Bilirubin) Negative Glucose (test code = Glucose) Negative Appearance (test code = Appearance) Slightly Cloudy Color (test code = Color) Yellow [facility] macro (dipstick) panel - [id number] 10:49:06* Test Item Value Reference Range Interpretation Comme nts Leukocytes (test code = Leukocytes) Small Nitrite (test code = Nitrite) negative Urobilinogen (test code = Urobilinogen) 1 Protein (test code = Protein) 100 pH (test code = pH) 6.5 Blood (test code = Blood) Non-Hemolyzed: Trace Specific Union (test code = Specific Union) 1.025 Ketone (test code = Ketone) Trace Bilirubin (test code = Bilirubin) Negative Glucose (test code = Glucose) Negative Appearance (test code = Appearance) Slightly Cloudy Color (test code = Color) Yellow [facility] macro (dipstick) panel - [id number] 10:49:06* Test Item Value Reference Range Interpretation Comme nts Leukocytes (test code = Leukocytes) Small Nitrite (test code = Nitrite) negative Urobilinogen (test code = Urobilinogen) 1 Protein (test code = Protein) 100 pH (test code = pH) 6.5 Blood (test code = Blood) Non-Hemolyzed: Trace Specific Union (test code = Specific Union) 1.025 Ketone (test code = Ketone) Trace Bilirubin (test code = Bilirubin) Negative Glucose (test code = Glucose) Negative Appearance (test code = Appearance) Slightly Cloudy Color (test code = Color) Yellow [facility] (dipstick) panel - [id number] 10:49:06* Test Item Value Reference Range Interpretation Comme nts Leukocytes (test code = Leukocytes) Small Nitrite (test code = Nitrite) negative Urobilinogen (test code = Urobilinogen) 1 Protein (test code = Protein) 100 pH (test code = pH) 6.5 Blood (test code = Blood) Non-Hemolyzed: Trace Specific Union (test code = Specific Union) 1.025 Ketone (test code = Ketone) Trace Bilirubin (test code = Bilirubin) Negative Glucose (test code = Glucose) Negative Appearance (test code = Appearance) Slightly Cloudy Color (test code = Color) Yellow [facility] [id number] 09:40:00* Test Item Value Reference Range Interpretation Comme nts quest collection (test code = quest collection) quest [facility] [id number] 09:40:00* Test Item Value Reference Range Interpretation Comme nts quest collection (test code = quest collection) [facility] [id number] 09:40:00* Test Item Value Reference Range Interpretation Comme nts quest collection (test code = quest collection) [facility] [id number] 09:40:00* Test Item Value Reference Range Interpretation Comme nts quest collection (test code = quest collection) [facility] 13:34:00* Test Item Value Reference Range Interpretation Comme nts RPR (test code = RPR) nonreactive nonreactive [facility] [id number] 13:34:00* Test Item Value Reference Range Interpretation Comme nts RPR (test code = RPR) nonreactive nonreactive [facility] [id number] 13:34:00* Test Item Value Reference Range Interpretation Comme nts RPR (test code = RPR) nonreactive [facility]reactive [facility] 14:00:00* Test Item Value Reference Range Interpretation Comme nts HIV P24 Ag (test code = HIV P24 Ag) non-reactive nonreactive HIV-1/2 Ab (test code = HIV- 1/2 Ab) non-reactive nonreactive [facility]2022-08-14 14:00:00* Test Item Value Reference Range Interpretation Comme nts HIV P24 Ag (test code = HIV P24 Ag) non-reactive nonreactive HIV-1/2 Ab (test code = HIV- 1/2 Ab) non-reactive [facility]reactive [facility]2022-08[facility]14 14:00:00* Test Item Value Reference Range Interpretation Comme nts HIV P24 Ag (test code = HIV P24 Ag) non-reactive nonreactive HIV-1/2 Ab (test code = HIV- 1/2 Ab) non-reactive [facility]reactive [facility]2022-08-14 14:00:00* Test Item Value Reference Range Interpretation Comme nts HIV P24 Ag (test code = HIV P24 Ag) non-reactive nonreactive HIV-1/2 Ab (test code = HIV- 1/2 Ab) non-reactive [facility]reactive [facility]2022-[facility]-14 14:00:00* Test Item Value Reference Range Interpretation Comme nts HIV P24 Ag (test code = HIV P24 Ag) non-reactive nonreactive HIV-1/2 Ab (test code = HIV- 1/2 Ab) non-reactive [facility]reactive [facility]22-[facility]14 14:00:00* Test Item Value Reference Range Interpretation Comme nts HIV P24 Ag (test code = HIV P24 Ag) non-reactive nonreactive HIV-1/2 Ab (test code = HIV- 1/2 Ab) non-reactive nonreactive [place] [id number] panel drug [id number] 13:57:00* Test Item Value Reference Range Interpretation Comme nts amphetamines screen urine (t est code = amphetamines screen urine) negative negative barbiturates, urine quant. ( test code = barbiturates, urine quant.) negative negative benzodiazepines screen urine (test code = benzodiazepines screen urine) negative negative cannabinoids (test code = cannabinoids) negative negative cocaine (test code = cocaine) negative negative opiates (test code = opiates) negative negative hydrocodone (test code = hydrocodone) negative negative fentanyl (test code = fentanyl) negative negative phencyclidine (test code = phencyclidine) negative negative methadone (test code = methadone) negative negative propoxyphene (test code = propoxyphene) negative negative oxycodone (test code = oxycodone) negative negative drug screen note (test code = drug screen note) . [place] [id number] panel drug [id number] 13:57:00* Test Item Value Reference Range Interpretation Comme nts amphetamines screen urine (t est code = amphetamines screen urine) negative negative barbiturates, urine quant. ( test code = barbiturates, urine quant.) negative negative benzodiazepines screen urine (test code = benzodiazepines screen urine) negative negative cannabinoids (test code = cannabinoids) negative negative cocaine (test code = cocaine) negative negative opiates (test code = opiates) negative negative hydrocodone (test code = hydrocodone) negative negative fentanyl (test code = fentanyl) negative negative phencyclidine (test code = phencyclidine) negative negative methadone (test code = methadone) negative negative propoxyphene (test code = propoxyphene) negative negative oxycodone (test code = oxycodone) negative negative drug screen note (test code = drug screen note) . [place] [id number] panel drug [id number] 13:57:00* Test Item Value Reference Range Interpretation Comme nts amphetamines screen urine (t est code = amphetamines screen urine) negative negative barbiturates, urine quant. ( test code = barbiturates, urine quant.) negative negative benzodiazepines screen urine (test code = benzodiazepines screen urine) negative negative cannabinoids (test code = cannabinoids) negative negative cocaine (test code = cocaine) negative negative opiates (test code = opiates) negative negative hydrocodone (test code = hydrocodone) negative negative fentanyl (test code = fentanyl) negative negative phencyclidine (test code = phencyclidine) negative negative methadone (test code = methadone) negative negative propoxyphene (test code = propoxyphene) negative negative oxycodone (test code = oxycodone) negative negative drug screen note (test code = drug screen note) . [facility] wood[facility] 1 HR fasting [id number] 13:41:00Glucose Woody 1 hr Fasting [facility] 2022-08-14 13:41:00Glucose Woody 1 hr Fasting [facility] 1 HR fasting [id number] 13:41:00Glucose Woody 1 hr Fasting [facility]aksCB [facility] Auto Differential panel - [id number] 13:18:00* Test Item Value Reference Range Interpretation Comme nts white blood count (test code = white blood count) 9.4 K/uL 4.0-11.5 red blood count (test code = red blood count) 4.23 M/uL 3.80-5.20 hemoglobin (test code = hemoglobin) 9.5 g/dL 10.5-15.7 L hematocrit (test code = hematocrit) 31.2 % 34.0-50.0 L mean corpuscular volume (francisco j t code = mean corpuscular volume) 73.8 fL 86.0-100.0 L mean corpuscular hemoglobin (test code = mean corpuscular hemoglobin) 22.5 pg 26.2-33.4 L mean corpuscular HGB conc (t est code = mean corpuscular HGB conc) 30.4 g/dL 30.0-34.0 red cell distribution width (test code = red cell distribution width) 14.9 % 12.0-15.5 platelet count (test code = platelet count) 247 K/uL 165-450 mean platelet volume (test c ode = mean platelet volume) 9.8 fL 9.4-12.6 neutrophils % (test code = neutrophils %) 74.0 % 44.4-80.1 Ig% (test code = Ig%) 1.1 % 0.0-0.4 H lymphocyte% (test code = lymphocyte%) 16.7 % 10.0-50.0 mono % (test code = mono %) 6.3 % 3.6-12.0 eos % (test code = eos %) 1.6 % 0.0-5.4 basophil % (test code = baso raheem %) 0.3 % 0.1-1.2 absolute neutrophil count (t est code = absolute neutrophil count) 6.93 K/uL 1.56-6.13 H Ig# (test code = Ig#) 0.10 K/uL 0.00-0.03 H lymph # (test code = lymph #) 1.56 K/uL 1.18-3.74 mono # (test code = mono #) 0.59 K/uL 0.24-0.86 eos # (test code = eos #) 0.15 K/uL 0.04-0.36 basophil # (test code = baso raheem #) 0.03 K/uL 0.01-0.08 NRBC% (test code = NRBC%) 0 /100 WBC 0-0.2 NRBC# (test code = NRBC#) 0 K/uL [facility] W Auto Differential panel - [id number] 13:18:00 * Test Item Value Reference Range Interpretation Comme nts white blood count (test code = white blood count) 9.4 K/uL 4.0-11.5 red blood count (test code = red blood count) 4.23 M/uL 3.80-5.20 hemoglobin (test code = hemoglobin) 9.5 g/dL 10.5-15.7 L hematocrit (test code = hematocrit) 31.2 % 34.0-50.0 L mean corpuscular volume (francisco j t code = mean corpuscular volume) 73.8 fL 86.0-100.0 L mean corpuscular hemoglobin (test code = mean corpuscular hemoglobin) 22.5 pg 26.2-33.4 L mean corpuscular HGB conc (t est code = mean corpuscular HGB conc) 30.4 g/dL 30.0-34.0 red cell distribution width (test code = red cell distribution width) 14.9 % 12.0-15.5 platelet count (test code = platelet count) 247 K/uL 165-450 mean platelet volume (test c ode = mean platelet volume) 9.8 fL 9.4-12.6 neutrophils % (test code = neutrophils %) 74.0 % 44.4-80.1 Ig% (test code = Ig%) 1.1 % 0.0-0.4 H lymphocyte% (test code = lymphocyte%) 16.7 % 10.0-50.0 mono % (test code = mono %) 6.3 % 3.6-12.0 eos % (test code = eos %) 1.6 % 0.0-5.4 basophil % (test code = baso raheem %) 0.3 % 0.1-1.2 absolute neutrophil count (t est code = absolute neutrophil count) 6.93 K/uL 1.56-6.13 H Ig# (test code = Ig#) 0.10 K/uL 0.00-0.03 H lymph # (test code = lymph #) 1.56 K/uL 1.18-3.74 mono # (test code = mono #) 0.59 K/uL 0.24-0.86 eos # (test code = eos #) 0.15 K/uL 0.04-0.36 basophil # (test code = baso raheem #) 0.03 K/uL 0.01-0.08 NRBC% (test code = NRBC%) 0 /100 WBC 0-0.2 NRBC# (test code = NRBC#) 0 K/uL [facility] W Auto Differential panel - [id number] 13:18:00 * Test Item Value Reference Range Interpretation Comme nts white blood count (test code = white blood count) 9.4 K/uL 4.0-11.5 red blood count (test code = red blood count) 4.23 M/uL 3.80-5.20 hemoglobin (test code = hemoglobin) 9.5 g/dL 10.5-15.7 L hematocrit (test code = hematocrit) 31.2 % 34.0-50.0 L mean corpuscular volume (francisco j t code = mean corpuscular volume) 73.8 fL 86.0-100.0 L mean corpuscular hemoglobin (test code = mean corpuscular hemoglobin) 22.5 pg 26.2-33.4 L mean corpuscular HGB conc (t est code = mean corpuscular HGB conc) 30.4 g/dL 30.0-34.0 red cell distribution width (test code = red cell distribution width) 14.9 % 12.0-15.5 platelet count (test code = platelet count) 247 K/uL 165-450 mean platelet volume (test c ode = mean platelet volume) 9.8 fL 9.4-12.6 neutrophils % (test code = neutrophils %) 74.0 % 44.4-80.1 Ig% (test code = Ig%) 1.1 % 0.0-0.4 H lymphocyte% (test code = lymphocyte%) 16.7 % 10.0-50.0 mono % (test code = mono %) 6.3 % 3.6-12.0 eos % (test code = eos %) 1.6 % 0.0-5.4 basophil % (test code = baso raheem %) 0.3 % 0.1-1.2 absolute neutrophil count (t est code = absolute neutrophil count) 6.93 K/uL 1.56-6.13 H Ig# (test code = Ig#) 0.10 K/uL 0.00-0.03 H lymph # (test code = lymph #) 1.56 K/uL 1.18-3.74 mono # (test code = mono #) 0.59 K/uL 0.24-0.86 eos # (test code = eos #) 0.15 K/uL 0.04-0.36 basophil # (test code = baso raheem #) 0.03 K/uL 0.01-0.08 NRBC% (test code = NRBC%) 0 /100 WBC 0-0.2 NRBC# (test code = NRBC#) 0 K/uL [facility] panel drug [id number] 12:58:00* Test Item Value Reference Range Interpretation Comme nts drug screen note (test code = drug screen note) . [facility] panel drug [id number] 12:58:00* Test Item Value Reference Range Interpretation Comme nts drug screen note (test code = drug screen note) . [facility] panel drug [id number] 12:58:00* Test Item Value Reference Range Interpretation Comme nts drug screen note (test code = drug screen note) . [facility]Indirect antiglobulin test.unspecified reagent [Presence] in Serum or [id number] 09:46:00* Test Item Value Reference Range Interpretation Comme nts ind sandi (test code = ind sandi) negative [facility]Ind[facility] antiglobulin test.unspecified reagent [Presence] in Serum or [id number] 09:46:00* Test Item Value Reference Range Interpretation Comme nts ind sandi (test code = ind sandi) negative [facility]Ind[facility] antiglobulin test.unspecified reagent [Presence] in Serum or [id number] 09:46:00* Test Item Value Reference Range Interpretation Comme nts ind sandi (test code = ind sandi) negative [facility] antiglobulin test.unspecified reagent [Presence] in Serum or [id number] 09:46:00* Test Item Value Reference Range Interpretation Comme nts ind sandi (test code = ind sandi) negative [facility] reagent [Presence] in Serum or [id number] 09:46:00* Test Item Value Reference Range Interpretation Comme nts ind sandi (test code = ind sandi) negative [facility].unspecified reagent [Presence] in Serum or [id number] 09:46:00* Test Item Value Reference Range Interpretation Comme nts ind sandi (test code = ind sandi) negative [facility].unspecified reagent [Presence] in Serum or [id number] 09:46:00* Test Item Value Reference Range Interpretation Comme nts ind sandi (test code = ind sandi) negative [facility].unspecified reagent [Presence] in Serum or [id number] 09:46:00* Test Item Value Reference Range Interpretation Comme nts ind sandi (test code = ind sandi) negative [facility]Ind[facility]ulin test.unspecified reagent [Presence] in Serum or [id number] 09:46:00* Test Item Value Reference Range Interpretation Comme nts ind sandi (test code = ind sandi) negative [facility] test.unspecified reagent [Presence] in Serum or [id number] 09:46:00* Test Item Value Reference Range Interpretation Comme nts ind sandi (test code = ind sandi) negative [facility]Ind[facility] antiglobulin test.unspecified reagent [Presence] in Serum or [id number] 09:46:00* Test Item Value Reference Range Interpretation Comme nts ind sandi (test code = ind sandi) negative [facility] GroupInd[facility] antiglobulin test.unspecified reagent [Presence] in Serum or [id number] 09:46:00* Test Item Value Reference Range Interpretation Comme nts ind sandi (test code = ind sandi) negative [facility] GroupUrinalysis macro (dipstick) panel - [id number] 08:48:39* Test Item Value Reference Range Interpretation Comme nts Leukocytes (test code = Leukocytes) Trace Nitrite (test code = Nitrite) negative Urobilinogen (test code = Urobilinogen) .2 Protein (test code = Protein) Trace pH (test code = pH) 7.0 Blood (test code = Blood) Negative Specific Union (test code = Specific Union) 1.025 Ketone (test code = Ketone) Negative Bilirubin (test code = Bilirubin) Negative Glucose (test code = Glucose) Negative Appearance (test code = Appearance) Clear Color (test code = Color) Yellow [facility] GroupUr[facility] (dipstick) panel - [id number] 08:48:39* Test Item Value Reference Range Interpretation Comme nts Leukocytes (test code = Leukocytes) Trace Nitrite (test code = Nitrite) negative Urobilinogen (test code = Urobilinogen) .2 Protein (test code = Protein) Trace pH (test code = pH) 7.0 Blood (test code = Blood) Negative Specific Union (test code = Specific Union) 1.025 Ketone (test code = Ketone) Negative Bilirubin (test code = Bilirubin) Negative Glucose (test code = Glucose) Negative Appearance (test code = Appearance) Clear Color (test code = Color) Yellow [facility]Ur[facility] macro (dipstick) panel - [id number] 08:48:39* Test Item Value Reference Range Interpretation Comme nts Leukocytes (test code = Leukocytes) Trace Nitrite (test code = Nitrite) negative Urobilinogen (test code = Urobilinogen) .2 Protein (test code = Protein) Trace pH (test code = pH) 7.0 Blood (test code = Blood) Negative Specific Union (test code = Specific Union) 1.025 Ketone (test code = Ketone) Negative Bilirubin (test code = Bilirubin) Negative Glucose (test code = Glucose) Negative Appearance (test code = Appearance) Clear Color (test code = Color) Yellow [facility] RegionUr[facility]ysis macro (dipstick) panel - [id number] 08:48:39* Test Item Value Reference Range Interpretation Comme nts Leukocytes (test code = Leukocytes) Trace Nitrite (test code = Nitrite) negative Urobilinogen (test code = Urobilinogen) .2 Protein (test code = Protein) Trace pH (test code = pH) 7.0 Blood (test code = Blood) Negative Specific Union (test code = Specific Union) 1.025 Ketone (test code = Ketone) Negative Bilirubin (test code = Bilirubin) Negative Glucose (test code = Glucose) Negative Appearance (test code = Appearance) Clear Color (test code = Color) Yellow [facility] RegionUr[facility] macro (dipstick) panel - [id number] 10:37:32* Test Item Value Reference Range Interpretation Comme nts Leukocytes (test code = Leukocytes) Small Nitrite (test code = Nitrite) negative Urobilinogen (test code = Urobilinogen) .2 Protein (test code = Protein) Negative pH (test code = pH) 6.5 Blood (test code = Blood) Negative Specific Union (test code = Specific Union) 1.025 Ketone (test code = Ketone) Negative Bilirubin (test code = Bilirubin) Negative Glucose (test code = Glucose) Negative Appearance (test code = Appearance) Clear Color (test code = Color) Yellow [facility]Ur[facility] macro (dipstick) panel - [id number] 10:37:32* Test Item Value Reference Range Interpretation Comme nts Leukocytes (test code = Leukocytes) Small Nitrite (test code = Nitrite) negative Urobilinogen (test code = Urobilinogen) .2 Protein (test code = Protein) Negative pH (test code = pH) 6.5 Blood (test code = Blood) Negative Specific Union (test code = Specific Union) 1.025 Ketone (test code = Ketone) Negative Bilirubin (test code = Bilirubin) Negative Glucose (test code = Glucose) Negative Appearance (test code = Appearance) Clear Color (test code = Color) Yellow [facility] RegionUr[facility] macro (dipstick) panel - [id number] 10:15:01* Test Item Value Reference Range Interpretation Comme nts Leukocytes (test code = Leukocytes) Trace Nitrite (test code = Nitrite) negative Urobilinogen (test code = Urobilinogen) 1 Protein (test code = Protein) Trace pH (test code = pH) 7.0 Blood (test code = Blood) Negative Specific Union (test code = Specific Union) 1.030 Ketone (test code = Ketone) Trace Bilirubin (test code = Bilirubin) Negative Glucose (test code = Glucose) Negative Appearance (test code = Appearance) Clear Color (test code = Color) Yellow [facility]Ur[facility] macro (dipstick) panel - [id number] 10:15:01* Test Item Value Reference Range Interpretation Comme nts Leukocytes (test code = Leukocytes) Trace Nitrite (test code = Nitrite) negative Urobilinogen (test code = Urobilinogen) 1 Protein (test code = Protein) Trace pH (test code = pH) 7.0 Blood (test code = Blood) Negative Specific Union (test code = Specific Union) 1.030 Ketone (test code = Ketone) Trace Bilirubin (test code = Bilirubin) Negative Glucose (test code = Glucose) Negative Appearance (test code = Appearance) Clear Color (test code = Color) Yellow [facility]PO[facility]AL[facility] W SPECIFIC [id number] 20:21:00* Test Item Value Reference Range Interpretation Comme nts POCT U SP GRAV (test code = 3255) * 1.005-1.025 POCT PH U (test code = 3254) 5 mg/dl 5-8 POCT U LEUK EST (test code = 3263) small Negative - Negative POCT U NIT (test code = 3262) negative Negative - Negati ve POCT U PROT (test code = 3259) trace Negative - Negat mireya POCT U GLU (test code = 3256) negative Negative - Negati ve POCT U KETONE (test code = 3258) negative Negative - Neg ative POCT U UROBILI (test code = 3260) * 0.2-1 POCT U BILI (test code = 3261) * Negative - Negat mireya POCT U BLD (test code = 3257) negative Negative - Negati ve POCT U COLOR (test code = 3266) POCT U APPEAR (test code = 3267) [facility] URINALYSIS W SPECIFIC [id number] 14:36:00* Test Item Value Reference Range Interpretation Comme nts POCT U SP GRAV (test code = 3255) . 1.005-1.025 POCT PH U (test code = 3254) . 5-8 POCT U LEUK EST (test code = 3263) . Negative - N egative POCT U NIT (test code = 3262) . Negative - Negati ve POCT U PROT (test code = 3259) Trace Negative - Negat mireya POCT U GLU (test code = 3256) Neg Negative - Negati ve POCT U KETONE (test code = 3258) . Negative - Neg ative POCT U UROBILI (test code = 3260) . 0.2-1 POCT U BILI (test code = 3261) . Negative - Negat mireya POCT U BLD (test code = 3257) . Negative - Negati ve POCT U COLOR (test code = 3266) . POCT U APPEAR (test code = 3267) . [facility] [id number] 19:19:00* Test Item Value Reference Range Interpretation Comme nts POCT PREG (test code = 1605) Positive On board controls acceptable with C Line (test code = 3572) Yes POCT PREG LOT # (test code = 6180) POCT PREG TEST DATE ( test code = 3576) [facility] SPECIFIC [id number] 19:18:00* Test Item Value Reference Range Interpretation Comme nts POCT PH U (test code = 3254) 7 mg/dl 5-8 POCT U LEUK EST (test code = 3263) trace Negative - Negative POCT U NIT (test code = 3262) negative Negative - Negati ve POCT U PROT (test code = 3259) negative Negative - Negat mireya POCT U GLU (test code = 3256) negative Negative - Negati ve POCT U KETONE (test code = 3258) negative Negative - Negative POCT U BLD (test code = 3257) negativee Negative - Negati ve [facility]
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
[2023-08-27 15:07] VITALS: BP 152/93; TEMP 98.2; O2SAT 99
== END ==
LOC: ER 13:29
DX: S16.1XXA Strain of muscle, fascia and tendon at neck level, initial encounter (principal); M54.50 Low back pain, unspecified
CPT/HCPCS: 72125; 72131